=== PATIENT | female | born 1970 ===

== ENCOUNTER 2016-09-08 08:59 | Emergency (ER) | payer OTHER ==
[2016-09-08 08:59] VITALS: BMI 25.7
[2016-09-08 09:10] VITALS: O2SAT 98
--- NOTE | 2016-09-08 09:57 | ED PDOC ---
HPI: Female Pain Time Seen by Provider: 09/08/16 09:30 Chief Complaint (Nursing): Lower Extremity Problem/Injury Chief Complaint (Provider): dysuria History Per: Patient History/Exam Limitations: no limitations Onset/Duration Of Symptoms: Days (x 4) Additional Complaint(s): Marie Mcfarland is a 45 year old female, with a questionable previous medical history of liver disease, who presents to the ED with complaints of dysuria associated with frequency and lower back pain radiating to her bilateral legs ongoing for 4 days. Patient denies fever, abdominal pain or vomiting. She was recently treaded for vaginal candidiasis. PMD: none provided Abnormal Vaginal Bleeding: No Past Medical History Reviewed: Historical Data, Nursing Documentation, Vital Signs Vital Signs: Last Vital Signs Temp 97 F L 09/08/16 09:03 Pulse 66 09/08/16 09:03 Resp BP 124/80 09/08/16 09:03 Pulse Ox 98 09/08/16 09:08 - Medical History PMH: Anxiety, Depression, Gastritis, Hepatitis (recently diagnosed) Denies: Chronic Kidney Disease - Surgical History Surgical History: No Surg Hx - Family History Family History: States: Unknown Family Hx - Immunization History Hx Tetanus Toxoid Vaccination: Yes (3 years ago) - Home Medications Home Medications: Ambulatory Orders Medication Instructions Recorded Clonazepam [Klonopin] 2 mg PO QID PRN 12/11/15 Pantoprazole [Protonix EC Tab] 40 mg PO DAILY 12/11/15 Cephalexin [cephalexin] 500 mg PO TID 04/25/16 Ibuprofen [Motrin Tab] 1 mg PO Q12 PRN 04/25/16 oxyCODONE/Acetaminophen [Percocet 1 mg PO Q4 PRN 04/25/16 5/325 mg Tab] Cyclobenzaprine [Cyclobenzaprine 10 mg PO TID #10 tab 09/08/16 HCl] Fluticasone Nasal [Flonase] 1 spr NS DAILY #1 spr 09/08/16 Naproxen [Naprosyn] 500 mg PO Q12H #20 tab 09/08/16 Sulfamethoxazole/Trimethoprim 1 tab PO BID #20 tab 09/08/16 [Bactrim DS 800 mg-160 mg] - Allergies Allergies/Adverse Reactions: Allergies Allergy/AdvReac Type Severity Reaction Status Date / Time No Known Allergies Allergy Verified 09/08/16 09:08 Review of Systems ROS Statement: Except As Marked, All Systems Reviewed And Found Negative Constitutional: Negative for: Fever Gastrointestinal: Negative for: Vomiting, Abdominal Pain Genitourinary Female: Positive for: Dysuria, Frequency. Negative for: Vaginal Discharge, Vaginal Bleeding Musculoskeletal: Positive for: Back Pain Physical Exam - Reviewed Nursing Documentation Reviewed: Yes Vital Signs Reviewed: Yes - Physical Exam Appears: Positive for: Well, Non-toxic, No Acute Distress Head Exam: Positive for: ATRAUMATIC, NORMAL INSPECTION, NORMOCEPHALIC Cardiovascular/Chest: Positive for: Regular Rate, Rhythm Respiratory: Positive for: CNT, Normal Breath Sounds Gastrointestinal/Abdominal: Positive for: Normal Exam, Bowel Sounds, Soft. Negative for: Tenderness Back: Positive for: Muscle Spasm (bilateral paralumbar spasm with tenderness). Negative for: L CVA Tenderness, R CVA Tenderness, Vertebral Tenderness Extremity: Positive for: Normal ROM Neurologic/Psych: Positive for: Alert, Oriented. Negative for: Motor/Sensory Deficits - ECG O2 Sat by Pulse Oximetry: 98 (RA) Pulse Ox Interpretation: Normal Medical Decision Making Medical Decision Making: Initial Plan: * urine culture * urine dipstick * urine * reevaluation Scribe Attestation: Documented by Beatris Baptiste, acting as a scribe for Sebastian Yang MD. Provider Scribe Attestation: All medical record entries made by the Scribe were at my direction and personally dictated by me. I have reviewed the chart and agree that the record accurately reflects my personal performance of the history, physical exam, medical decision making, and the department course for this patient. I have also personally directed, reviewed, and agree with the discharge instructions and disposition. Disposition - Clinical Impression Clinical Impression: UTI (lower urinary tract infection), Chronic back pain - Patient ED Disposition Is Patient to be Admitted: No Counseled Patient/Family Regarding: Diagnosis, Need For Followup, Rx Given - Disposition Referrals: [facility] [Outside] Disposition: Routine/Home Disposition Time: 10:38 Condition: FAIR Prescriptions: Cyclobenzaprine [Cyclobenzaprine HCl] 10 mg PO TID #10 tab Fluticasone Nasal [Flonase] 1 spr NS DAILY #1 spr Naproxen [Naprosyn] 500 mg PO Q12H #20 tab Sulfamethoxazole/Trimethoprim [Bactrim DS 800 mg-160 mg] 1 tab PO BID #20 tab Instructions: Urinary Tract Infection in Women (ED), Lumbar Radiculopathy (ED)
[2016-09-08 11:19] VITALS: BP 128/76; PULSE 78; RESP 20; TEMP 97.6
== END 2016-09-08 11:19 | disposition home or self-care (01) ==
LOC: H.ER 08:59
DX: N39.0 Urinary tract infection, site not specified (principal); M54.9 Dorsalgia, unspecified

== ENCOUNTER 2016-09-15 10:38 | Emergency (ER) | payer MEDICAID, OTHER ==
[2016-09-15 10:39] VITALS: BMI 25.7
[2016-09-15 11:04] VITALS: O2SAT 98
[2016-09-15] MEDS ORDERED: Oxycodone/Acetaminophen 5/325 mg Tab PO STA (11:11)
--- NOTE | 2016-09-15 11:19 | ED PDOC ---
HPI: Back Time Seen by Provider: 09/15/16 11:17 Chief Complaint (Nursing): Back Pain Chief Complaint (Provider): left sided flank pain History Per: Patient (45 y/o female tripped and fell along furniture at home yesteday. Notes moderate pain along left chest wall. Patient uses cane s/p bunionectomy. States she fell along wooden edge of furniture.) Past Medical History Reviewed: Historical Data, Nursing Documentation, Vital Signs Vital Signs: Last Vital Signs Temp Pulse Resp BP Pulse Ox 98 09/15/16 11:02 - Medical History PMH: Anxiety, Depression, Gastritis, Hepatitis (recently diagnosed) Denies: Chronic Kidney Disease - Family History Family History: States: Unknown Family Hx - Immunization History Hx Tetanus Toxoid Vaccination: Yes (3 years ago) - Home Medications Home Medications: Ambulatory Orders Medication Instructions Recorded Clonazepam [Klonopin] 2 mg PO QID PRN 12/11/15 Pantoprazole [Protonix EC Tab] 40 mg PO DAILY 12/11/15 Cephalexin [cephalexin] 500 mg PO TID 04/25/16 Ibuprofen [Motrin Tab] 1 mg PO Q12 PRN 04/25/16 oxyCODONE/Acetaminophen [Percocet 1 mg PO Q4 PRN 04/25/16 5/325 mg Tab] Cyclobenzaprine [Cyclobenzaprine 10 mg PO TID #10 tab 09/08/16 HCl] Fluconazole [Diflucan] 100 mg PO DAILY #1 tab 09/08/16 Fluticasone Nasal [Flonase] 1 spr NS DAILY #1 spr 09/08/16 Sulfamethoxazole/Trimethoprim 1 tab PO BID #20 tab 09/08/16 [Bactrim DS 800 mg-160 mg] Naproxen [Naprosyn Tab] 375 mg PO Q8 PRN #21 tab 09/15/16 oxyCODONE/Acetaminophen [Percocet 1 ea PO Q6 PRN #10 tab 09/15/16 5/325 mg Tab] - Allergies Allergies/Adverse Reactions: Allergies Allergy/AdvReac Type Severity Reaction Status Date / Time No Known Allergies Allergy Verified 09/15/16 11:01 Review of Systems ROS Statement: Except As Marked, All Systems Reviewed And Found Negative Physical Exam - Reviewed Nursing Documentation Reviewed: Yes Vital Signs Reviewed: Yes - Physical Exam Appears: Positive for: Well, Non-toxic, No Acute Distress Head Exam: Positive for: ATRAUMATIC, NORMAL INSPECTION, NORMOCEPHALIC Skin: Positive for: Normal Color, Warm, DRY Eye Exam: Positive for: EOMI, Normal appearance, PERRL ENT: Positive for: Normal ENT Inspection Neck: Positive for: Normal, Painless ROM Cardiovascular/Chest: Positive for: Regular Rate, Rhythm. Negative for: Chest Non Tender (left sided chest wall tender/ecchymosis noted.) Respiratory: Positive for: CNT, Normal Breath Sounds Gastrointestinal/Abdominal: Positive for: Normal Exam, Bowel Sounds, Soft Back: Positive for: Normal Inspection Extremity: Positive for: Normal ROM Neurologic/Psych: Positive for: Alert, Oriented - ECG O2 Sat by Pulse Oximetry: 98 - Progress ED Course And Treament: Percocet 5/325 mg x 1 dose Disposition - Clinical Impression Clinical Impression: Rib injury - Disposition Disposition: Routine/Home Disposition Time: 12:19 Condition: FAIR Prescriptions: Naproxen [Naprosyn Tab] 375 mg PO Q8 PRN #21 tab PRN Reason: Pain, Moderate (4-7) oxyCODONE/Acetaminophen [Percocet 5/325 mg Tab] 1 ea PO Q6 PRN #10 tab PRN Reason: Pain, Severe (8-10) Instructions: Rib Fracture (ED) Forms: [employer] (Yakut)
[2016-09-15] MEDS ORDERED: Oxycodone/Acetaminophen 5/325 mg Tab ONE (11:28)
[2016-09-15 12:21] VITALS: BP 117/78; PULSE 93; RESP 16; TEMP 98
--- NOTE | 2016-09-15 13:10 | RAD ---
PROCEDURE: Radiographs of the Chest and Left Ribs. HISTORY: rib fx COMPARISON: Chest x-ray performed 04/21/16. TECHNIQUE: Frontal radiograph of the chest and multiple oblique radiographs of the left ribs were obtained. FINDINGS: LEFT RIBS: No appreciable displaced rib fracture. LUNGS: No focal consolidation. Please note that chest x-ray has limited sensitivity for the detection of pulmonary masses. PLEURA: No significant pleural effusion. No definite pneumothorax. CARDIOVASCULAR: Heart size appears within normal limits. OTHER FINDINGS: None. IMPRESSION: Unremarkable radiographs of the chest and left ribs. No appreciable displaced left rib fracture.
== END 2016-09-15 14:30 | disposition home or self-care (01) ==
LOC: H.ER 10:38
DX: S29.9XXA Unspecified injury of thorax, initial encounter (principal); W01.190A Fall on same level from slipping, tripping and stumbling with subsequent striking against furniture, initial encounter; Y93.9 Activity, unspecified; Y92.009 Unspecified place in unspecified non-institutional (private) residence as the place of occurrence of the external cause

== ENCOUNTER 2016-10-28 07:40 | Emergency (ER) | payer OTHER ==
[2016-10-28 07:50] VITALS: BMI 26.1
[2016-10-28 07:51] VITALS: O2SAT 98
--- NOTE | 2016-10-28 09:05 | ED PDOC ---
HPI: CCC, URI, Sore Throat Time Seen by Provider: 10/28/16 07:54 Chief Complaint (Nursing): Chest Pain Chief Complaint (Provider): cough, cold, congestion History Per: Patient History/Exam Limitations: no limitations Onset/Duration Of Symptoms: Days (x 3) Additional Complaint(s): Marie Mcfarland is a 45 year old female, with a previous medical history of depression, arthritis and tremors, who presents to the ED with complaints of a cough associated with chest pain on deep inspiration, sore throat, headache and left calf tenderness ongoing for 3 days. Patient denies any shortness of breath , fever, chills or recent travel. Patient reports taking gas-x which provided no relief. PMD: Kurt Auguste MD Past Medical History Reviewed: Historical Data, Nursing Documentation, Vital Signs Vital Signs: Last Vital Signs Temp 97.6 F 10/28/16 14:42 Pulse 78 10/28/16 14:42 Resp 19 10/28/16 14:42 BP 128/78 10/28/16 14:42 Pulse Ox 98 10/28/16 14:42 - Medical History PMH: Anxiety, Depression, Gastritis, Hepatitis (recently diagnosed) Denies: Chronic Kidney Disease - Family History Family History: States: Unknown Family Hx - Immunization History Hx Tetanus Toxoid Vaccination: Yes (3 years ago) - Home Medications Home Medications: Ambulatory Orders Medication Instructions Recorded Clonazepam [Klonopin] 2 mg PO QID PRN 12/11/15 Pantoprazole [Protonix EC Tab] 40 mg PO DAILY 12/11/15 Cephalexin [cephalexin] 500 mg PO TID 04/25/16 Ibuprofen [Motrin Tab] 1 mg PO Q12 PRN 04/25/16 oxyCODONE/Acetaminophen [Percocet 1 mg PO Q4 PRN 04/25/16 5/325 mg Tab] Cyclobenzaprine [Cyclobenzaprine 10 mg PO TID #10 tab 09/08/16 HCl] Fluconazole [Diflucan] 100 mg PO DAILY #1 tab 09/08/16 Fluticasone Nasal [Flonase] 1 spr NS DAILY #1 spr 09/08/16 Sulfamethoxazole/Trimethoprim 1 tab PO BID #20 tab 09/08/16 [Bactrim DS 800 mg-160 mg] Naproxen [Naprosyn Tab] 375 mg PO Q8 PRN #21 tab 09/15/16 oxyCODONE/Acetaminophen [Percocet 1 ea PO Q6 PRN #10 tab 09/15/16 5/325 mg Tab] Naproxen [Naprosyn] 500 mg PO BID PRN #15 tablet 10/28/16 - Allergies Allergies/Adverse Reactions: Allergies Allergy/AdvReac Type Severity Reaction Status Date / Time tramadol AdvReac DIZZINESS Verified 10/28/16 08:18 Review of Systems ROS Statement: Except As Marked, All Systems Reviewed And Found Negative Constitutional: Negative for: Fever, Chills Cardiovascular: Positive for: Chest Pain. Negative for: Palpitations Respiratory: Positive for: Cough. Negative for: Shortness of Breath Musculoskeletal: Positive for: Other (left calf pain ) Physical Exam - Reviewed Nursing Documentation Reviewed: Yes Vital Signs Reviewed: Yes - Physical Exam Appears: Positive for: Well, Non-toxic, No Acute Distress Head Exam: Positive for: ATRAUMATIC, NORMAL INSPECTION, NORMOCEPHALIC Skin: Positive for: Normal Color, Warm, Dry Eye Exam: Positive for: EOMI, Normal appearance, PERRL ENT: Positive for: Normal ENT Inspection Neck: Positive for: Normal, Painless ROM Cardiovascular/Chest: Positive for: Bradycardia. Negative for: Chest Non Tender (TTP bilateral anterior chest wall) Respiratory: Positive for: CNT, Normal Breath Sounds Gastrointestinal/Abdominal: Positive for: Normal Exam, Bowel Sounds, Soft. Negative for: Tenderness Back: Positive for: Normal Inspection Extremity: Positive for: Normal ROM, Calf Tenderness (left ) Neurologic/Psych: Positive for: Alert, Oriented - Laboratory Results Result Diagrams: 10/28/16 09:19 10/28/16 09:19 - ECG O2 Sat by Pulse Oximetry: 98 (RA) Pulse Ox Interpretation: Normal Medical Decision Making Medical Decision Making: Initial Impression: atypical chest pain Initial Plan: * labs * Troponin I * PTT * PT * urine * urine dipstick * urinalysis * US duplex lower extremity * D-dimer * CXR * reevaluation 11:19 CXR FINDINGS: LUNGS: No active pulmonary disease. PLEURA: No significant pleural effusion identified. No pneumothorax apparent. CARDIOVASCULAR: Normal. OSSEOUS STRUCTURES: No significant abnormalities. VISUALIZED UPPER ABDOMEN: Normal. OTHER FINDINGS: None. IMPRESSION: No active disease. No significant interval change compared to the prior examination(s). Accession No. : [id number] Patient Name / ID : YECENIA RADFORD / [id number] Exam Date : 10/28/2016 12:44:16 ( Approved ) Study Comment : Sex / Age : F / 45Y Creator : Yoni Boucher MD Dictator : Yoni Boucher MD Batch Freezer : [employer] Middleware Developer : Yoni Boucher MD Approver2 : Report Date : 10/28/2016 13:50:54 My Comment : PROCEDURE: CT Chest with contrast (Pulmonary Angiogram) HISTORY: CP COMPARISON: None available. TECHNIQUE: Axial computed tomography images were obtained of the chest in the pulmonary arterial phase of enhancement. Coronal and sagittal reformatted images were created and reviewed. Maximum intensity projection (MIP) reconstructed images in the following planes : Axial projection only Intravenous contrast dose: 95 cc Visipaque 320. Mean Hounsfield unit values in the main pulmonary artery: 318.27 Radiation dose: Total exam DLP = 462.50 mGy-cm. This CT exam was performed using one or more of the following dose reduction techniques: Automated exposure control, adjustment of the mA and/or kV according to patient size, and/or use of iterative reconstruction technique. FINDINGS: PULMONARY ARTERIES: Unremarkable. No pulmonary embolism. AORTA: No acute findings. No thoracic aortic aneurysm. LUNGS: Unremarkable. No nodule, mass or pulmonary consolidation. PLEURAL SPACES: Unremarkable. No effusion or pneuomothorax. HEART: Unremarkable. No cardiomegaly. No significant pericardial effusion. LYMPH NODES: No lymphadenopathy. BONES, CHEST WALL: Unremarkable. No fracture or destructive lesion OTHER FINDINGS: Unremarkable. IMPRESSION: Unremarkable CT pulmonary angiogram. No pulmonary embolus. Accession No. : [id number] Patient Name / ID : YECENIA RADFORD / [id number] Exam Date : 10/28/2016 11:53:49 ( Approved ) Study Comment : Sex / Age : F / 45Y Creator : Yoni Boucher MD Dictator : Yoni Bocuher MD Batch Freezer : [employer] Middleware Developer : Yoni Boucher MD Approver2 : Report Date : 10/28/2016 14:17:37 My Comment : PROCEDURE: Bilateral lower extremity venous duplex Doppler. HISTORY: LLE swelling COMPARISON: None available. TECHNIQUE: Bilateral common femoral, superficial femoral, popliteal and posterior tibial veins were evaluated. Flow was assessed with color Doppler, compressibility, assessment of phasic flow and augmentation response. FINDINGS: COMMON FEMORAL VEIN: Right CFV: Unremarkable. Left CFV: Unremarkable. SUPERFICIAL FEMORAL VEIN: Right SFV: Unremarkable. Left SFV: Unremarkable. POPLITEAL VEIN: Right Popliteal: Unremarkable. Left Popliteal: Unremarkable. POSTERIOR TIBIAL VEIN: Right PTV: Unremarkable. Left PTV: Unremarkable. OTHER FINDINGS: None. IMPRESSION: No evidence of deep venous thrombosis. Scribe Attestation: Documented by Beatris Baptiste, acting as a scribe for Beatris Gallo MD. Provider Scribe Attestation: All medical record entries made by the Scribe were at my direction and personally dictated by me. I have reviewed the chart and agree that the record accurately reflects my personal performance of the history, physical exam, medical decision making, and the department course for this patient. I have also personally directed, reviewed, and agree with the discharge instructions and disposition. Disposition - Clinical Impression Clinical Impression: Chest wall pain - Disposition Referrals: [facility] [Outside] Disposition: Routine/Home Disposition Time: 13:58 Condition: STABLE Prescriptions: Naproxen [Naprosyn] 500 mg PO BID PRN #15 tablet PRN Reason: Pain, Moderate (4-7) Instructions: Chest Wall Pain (ED) Forms: [employer] ([place]izen [place])
[2016-10-28 09:25] LABS: BASO # 0.1 K/uL (0.0-0.2); BASO % 1.2 % (0.0-2.0); EOS # 0.2 K/uL (0.0-0.7); EOS % 4.6 % (0.0-4.0); HEMATOCRIT 34.8 % (34.0-47.0); LYMPH # 1.6 K/uL (1.0-4.3); LYMPH % 32.3 % (20.0-40.0); MEAN CELL VOLUME 92.1 fl (81.0-99.0); MEAN CORPUSCULAR HEMOGLOBIN 31.2 pg (27.0-31.0); MEAN CORPUSCULAR HGB CONC 33.8 g/dL (33.0-37.0); MEAN PLATELET VOLUME 9.3 fl (7.2-11.7); MONO # 0.5 K/uL (0.0-0.8); MONO % 9.6 % (0.0-10.0); NEUT # 2.7 K/uL (1.8-7.0); NEUT % 52.3 % (50.0-75.0); RED CELL DISTRIBUTION WIDTH 13.9 % (11.5-14.5); WHITE BLOOD COUNT 5.1 K/uL (4.8-10.8)
[2016-10-28 09:41] LABS: ALB/GLOB RATIO 1.1 (1.0-2.1); ALKALINE PHOSPHATASE 379 U/L (38-126); ALT/SGPT 100 U/L (9-52); AST/SGOT 97 U/L (14-36); BILIRUBIN,TOTAL 0.6 mg/dl (0.2-1.3); BLOOD UREA NITROGEN 8 mg/dl (7-17); CALCIUM 9.3 mg/dL (8.4-10.2); CARBON DIOXIDE 23 mmol/L (22-30); CHLORIDE 107 mmol/L (98-107); GFR AFRICAN-AMERICAN > 60; GLUCOSE,RANDOM 93 mg/dL (65-105); POTASSIUM 3.8 MMOL/L (3.6-5.0); SODIUM 139 mmol/l (132-148)
[2016-10-28 09:43] LABS: RBC URINE 3127 /hpf (0-3); URINE BLOOD LARGE (NEGATIVE); URINE COLOR RED (YELLOW); URINE GLUCOSE (UA) NEG (Normal); URINE LEUKOCYTE ESTERASE TRACE Leu/uL (Negative); WBC URINE 45 /hpf (0-5)
[2016-10-28 09:48] LABS: URINE BILIRUBIN SMALL (NEGATIVE); URINE KETONE TRACE mg/dL (NEGATIVE)
[2016-10-28 09:49] LABS: PH,URINE 5.5 (5.0-8.0); URINE PROTEIN >=300 mg/dL (NEGATIVE)
[2016-10-28 09:52] LABS: URINE BACTERIA OCC (<OCC)
[2016-10-28 09:53] LABS: PARTIAL THROMBOPLASTIN TIME 27.2 Seconds (25.6-37.1)
[2016-10-28] MEDS ORDERED: Naproxen 500 MG TAB PO STA (10:11)
[2016-10-28] MEDS ORDERED: Naproxen 500 MG TAB PO ONE (10:11)
--- NOTE | 2016-10-28 11:22 | RAD ---
HISTORY: Midsternal CP COMPARISON: 09/15/2016. TECHNIQUE: Chest PA and lateral FINDINGS: LUNGS: No active pulmonary disease. PLEURA: No significant pleural effusion identified. No pneumothorax apparent. CARDIOVASCULAR: Normal. OSSEOUS STRUCTURES: No significant abnormalities. VISUALIZED UPPER ABDOMEN: Normal. OTHER FINDINGS: None. IMPRESSION: No active disease. No significant interval change compared to the prior examination(s). No preliminary report provided by emergency department personnel.
[2016-10-28] MEDS ORDERED: Sodium Chloride 0.9% 50 ML IV ONE ×2 (12:08→12:38)
[2016-10-28] MEDS ORDERED: Iodixanol 320 MG/ML 100 ML BOTTLE IV ONE ×2 (12:09→12:37)
--- NOTE | 2016-10-28 13:52 | CT ---
PROCEDURE: CT Chest with contrast (Pulmonary Angiogram) HISTORY: CP COMPARISON: None available. TECHNIQUE: Axial computed tomography images were obtained of the chest in the pulmonary arterial phase of enhancement. Coronal and sagittal reformatted images were created and reviewed. Maximum intensity projection (MIP) reconstructed images in the following planes: Axial projection only Intravenous contrast dose: 95 cc Visipaque 320. Mean Hounsfield unit values in the main pulmonary artery: 318.27 Radiation dose: Total exam DLP = 462.50 mGy-cm. This CT exam was performed using one or more of the following dose reduction techniques: Automated exposure control, adjustment of the mA and/or kV according to patient size, and/or use of iterative reconstruction technique. FINDINGS: PULMONARY ARTERIES: Unremarkable. No pulmonary embolism. AORTA: No acute findings. No thoracic aortic aneurysm. LUNGS: Unremarkable. No nodule, mass or pulmonary consolidation. PLEURAL SPACES: Unremarkable. No effusion or pneuomothorax. HEART: Unremarkable. No cardiomegaly. No significant pericardial effusion. LYMPH NODES: No lymphadenopathy. BONES, CHEST WALL: Unremarkable. No fracture or destructive lesion OTHER FINDINGS: Unremarkable. IMPRESSION: Unremarkable CT pulmonary angiogram. No pulmonary embolus.
--- NOTE | 2016-10-28 14:19 | US ---
PROCEDURE: Bilateral lower extremity venous duplex Doppler. HISTORY: LLE swelling COMPARISON: None available. TECHNIQUE: Bilateral common femoral, superficial femoral, popliteal and posterior tibial veins were evaluated. Flow was assessed with color Doppler, compressibility, assessment of phasic flow and augmentation response. FINDINGS: COMMON FEMORAL VEIN: Right CFV: Unremarkable. Left CFV: Unremarkable. SUPERFICIAL FEMORAL VEIN: Right SFV: Unremarkable. Left SFV: Unremarkable. POPLITEAL VEIN: Right Popliteal: Unremarkable. Left Popliteal: Unremarkable. POSTERIOR TIBIAL VEIN: Right PTV: Unremarkable. Left PTV: Unremarkable. OTHER FINDINGS: None. IMPRESSION: No evidence of deep venous thrombosis.
[2016-10-28 14:43] VITALS: BP 128/78; PULSE 78; RESP 19; TEMP 97.6
--- NOTE | 2016-10-29 18:10 | CARD ---
APPROVED REPORT EKG Measurement Heart [id number] <Conclusion> Sinus bradycardia with sinus arrhythmia Otherwise normal ECG
== END 2016-10-28 14:43 | disposition home or self-care (01) ==
LOC: H.ER 07:40
DX: R07.89 Other chest pain (principal); F41.9 Anxiety disorder, unspecified

== ENCOUNTER 2016-12-17 09:37 | Emergency (ER) | payer OTHER ==
[2016-12-17 09:37] VITALS: BMI 26.1
[2016-12-17 10:06] VITALS: RESP 16; TEMP 97; O2SAT 98
--- NOTE | 2016-12-17 11:18 | ED PDOC ---
HPI: General Adult Time Seen by Provider: 12/17/16 10:07 Chief Complaint (Nursing): Finger,Hand,&Wrist History Per: Patient Additional Complaint(s): Pt. states 4 days ago she developed b/l wrist and hand pain causing her to drop a pot. This morning she was holding a teapot and then developed R hand pain. Pt. states she's had b/l hand pain for several years now but has never had wrist pain. Denies numbness, tingling, trauma, fever, rash, swelling. Past Medical History Reviewed: Historical Data, Nursing Documentation, Vital Signs Vital Signs: Last Vital Signs Temp 97 F L 12/17/16 10:02 Pulse 69 12/17/16 10:02 Resp 16 12/17/16 10:02 BP 123/70 12/17/16 10:02 Pulse Ox 98 12/17/16 11:20 - Medical History PMH: Anxiety, Arthritis, Depression, Gastritis, Hepatitis (recently diagnosed) Denies: Chronic Kidney Disease - Family History Family History: States: No Known Family Hx - Immunization History Hx Tetanus Toxoid Vaccination: Yes (3 years ago) - Home Medications Home Medications: Ambulatory Orders Medication Instructions Recorded Clonazepam [Klonopin] 2 mg PO QID PRN 12/11/15 Pantoprazole [Protonix EC Tab] 40 mg PO DAILY 12/11/15 Cephalexin [cephalexin] 500 mg PO TID 04/25/16 Ibuprofen [Motrin Tab] 1 mg PO Q12 PRN 04/25/16 oxyCODONE/Acetaminophen [Percocet 1 mg PO Q4 PRN 04/25/16 5/325 mg Tab] Cyclobenzaprine [Cyclobenzaprine 10 mg PO TID #10 tab 09/08/16 HCl] Fluconazole [Diflucan] 100 mg PO DAILY #1 tab 09/08/16 Fluticasone Nasal [Flonase] 1 spr NS DAILY #1 spr 09/08/16 Sulfamethoxazole/Trimethoprim 1 tab PO BID #20 tab 09/08/16 [Bactrim DS 800 mg-160 mg] Naproxen [Naprosyn Tab] 375 mg PO Q8 PRN #21 tab 09/15/16 oxyCODONE/Acetaminophen [Percocet 1 ea PO Q6 PRN #10 tab 09/15/16 5/325 mg Tab] Naproxen [Naprosyn] 500 mg PO BID PRN #15 tablet 10/28/16 Diclofenac Sodium [Voltaren] 1 appl TP BID PRN #1 12/17/16 - Allergies Allergies/Adverse Reactions: Allergies Allergy/AdvReac Type Severity Reaction Status Date / Time tramadol AdvReac DIZZINESS Verified 12/17/16 10:02 Review of Systems ROS Statement: Except As Marked, All Systems Reviewed And Found Negative Physical Exam - Physical Exam Appears: Positive for: Well, Non-toxic, No Acute Distress Skin: Positive for: Normal Color, Warm. Negative for: Rash Pulses-Radial (L): 2+ Pulses-Radial (R): 2+ Extremity: Positive for: Normal ROM, Other (b/l upper extremities without swelling, tenderness, warmth, erythema) - ECG O2 Sat by Pulse Oximetry: 98 - Progress ED Course And Treament: Toradol 15mg IM ordered. B/L hand x-rays ordered. Disposition - Clinical Impression Clinical Impression: Arthralgia - Patient ED Disposition Is Patient to be Admitted: No - Disposition Referrals: [facility] [Outside] Disposition: Routine/Home Disposition Time: 12:26 Condition: STABLE Prescriptions: Diclofenac Sodium [Voltaren] 1 appl TP BID PRN #1 PRN Reason: pain Instructions: Arthralgia (ED) Forms: [employer] ([place]) Print Language: SLOVENIAN
[2016-12-17 12:40] VITALS: BP 120/70; PULSE 70
--- NOTE | 2016-12-17 14:12 | RAD ---
PROCEDURE: Right Hand Radiographs. HISTORY: pain COMPARISON: None. FINDINGS: BONES: No acute fractures. JOINTS: Mild osteoarthritic changes. SOFT TISSUES: Normal. OTHER FINDINGS: None. IMPRESSION: No acute findings related to/accounting for the clinical presentation. Mild osteoarthritic changes in the expected interphalangeal joint distribution.
--- NOTE | 2016-12-17 14:14 | RAD ---
PROCEDURE: Left Hand Radiographs. HISTORY: Pain. No history of recent/ related trauma provided COMPARISON: December 17, 2016. Right hand reported separately FINDINGS: BONES: No acute fractures. JOINTS: Mild osteoarthritic changes symmetrical compared the contralateral, right hand. SOFT TISSUES: Normal. OTHER FINDINGS: None. IMPRESSION: Mild osteoarthritic change, no acute findings.
== END 2016-12-17 12:40 | disposition home or self-care (01) ==
LOC: H.ER 09:37
DX: M79.643 Pain in unspecified hand (principal)
CPT/HCPCS: 73130; 81025; 96372; 99284; J1885

== ENCOUNTER 2017-01-02 08:00 | Day surgery (SDC) | payer OTHER ==
[2017-01-02 08:24] VITALS: RESP 18
[2017-01-02] MEDS ORDERED: Lactated Ringer's 1,000 ML IV ONE (08:44)
--- NOTE | 2017-01-02 09:37 | CP.SDSHP ---
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 - Previous Medical/Surgical History Pain: 4.Moderate Pain Previous Surgical History: history of R foot surgery - Allergies Allergies: Allergies tramadol Adverse Reaction (Verified 12/17/16 10:02) DIZZINESS - Physical Exam General Appearance: well nourished, in NAD Vital Signs: Vital Signs 01/02/17 01/02/17 08:22 08:25 Temperature 97 F L Pulse Rate 60 60 Respiratory 18 Rate Blood Pressure 117/71 O2 Sat by Pulse 98 Oximetry Mental Status: Alert & Oriented x3 Neuro: WNL - {Optional Preform as Required} Integument: Other (well healed cicatres on dorsum of R 1st MPJ and midfoot) Ortho: Other (pain on palpation dorsum of R midfoot) - Impression Impression: Pt was seen and examined in [facility]. Pt NPO status was confirmed. All Pre-op testing and clearance was in the chart. Pt has exhausted all conservative treatment at this time and is opting for surgical intervention. Pt was explained procedure and post-operative course. All pt's questions were answered to satisfaction. No guarantees were made. Pt understands all risks, benefits and complications of procedure. Pt will follow-up with Dr. Carver in the podiatry clinic - Date & Time Date: 01/02/17 Time: 08:00 Short Stay Discharge - Short Stay Discharge Disposition: HOME/ ROUTINE Referrals: Darron Wodo MD [Primary Care Provider] - Follow-up: with Dr. Carver in [facility] podiatry clinic within 1 week Instructions: Cephalexin (By mouth), Oxycodone/Acetaminophen (By mouth), RICE Therapy (GEN) Additional Instructions (Diet, Activity): Patient in good/stable condition for discharge home. Pt to resume medications per medical reconciliation. Resume regular diet. Please keep dressing clean, dry, & intact to surgical site, use plastic bag over bandage for showering, wear post op shoe at all times when ambulating, call clinic if you see signs of infection (redness, swelling, malodor), please make an appointment to see Dr. Carver in clinic within 1 week for post-op check. Progress Note/Discharge Note with Instructions: - Patient evaluated bedside in recovery s/p surgical procedure. - After surgical procedure patient in NAD - (+) Void, (+) Appetite - Capillary refill time <3s and NVSI intact. - Patient denies complaints at this time - Post operative instructions and plan of care explained to patient at length. - Pt. acknowledges understanding. - Patient stable for DC per podiatric surgery <Chris Sosa - Last Filed: 01/02/17 15:34> Same Day Surgery H & P - Allergies Allergies: Allergies tramadol Adverse Reaction (Verified 12/17/16 10:02) DIZZINESS - Physical Exam Vital Signs: Vital Signs 01/02/17 01/02/17 08:22 08:25 Temperature 97 F L Pulse Rate 60 60 Respiratory 18 Rate Blood Pressure 117/71 O2 Sat by Pulse 98 Oximetry Short Stay Discharge - Short Stay Discharge Admitting Diagnosis/Reason for Visit: S93.326A
[2017-01-02] MEDS ORDERED: Dexamethasone 4 mg/1 ml ONE ×2 (09:38→10:51)
[2017-01-02] MEDS ORDERED: Bupivacaine 0.5% Inj(30mL) ONE (09:38)
[2017-01-02] MEDS ORDERED: Lidocaine 1% Inj (20ml) ONE (09:38)
--- NOTE | 2017-01-02 09:40 | CP.PCM.PN ---
Subjective - Date & Time of Evaluation Date of Evaluation: 01/02/17 Time of Evaluation: 09:37 - Subjective Subjective: Podiatry Progress Note - Dr. Carver 46 year old female unremarkable PMH was seen in [facility] for pre-operative evaluation for right 1st and 2nd metatarsal cuneiform joint fusion + removal of hardware by Dr. Carver today. Patient has been having a lot of pain on her right midfoot for the past 2 years and has exhausted conservative treatment and now opts for surgical intervention. NPO status confirmed. Patient is NAD and AAOx3, denies n/v/f/c/sob/cp. Objective - Vital Signs/Intake and Output Vital Signs (last 24 hours): Temp Pulse Resp BP Pulse Ox 97 F L 60 18 117/71 98 01/02/17 08:22 01/02/17 08:25 01/02/17 08:22 01/02/17 08:22 01/02/17 08:22 - Constitutional Appears: Well, Non-toxic, No Acute Distress - Extremities Exam Additional comments: RLE focused physical exam: vasc: DP/PT pulses palpable 2/4, TG wnl, CFT < 3 sec to all digits, no edema noted neuro: gross sensation intact derm: no open lesions noted, well healed cicatres on dorsum of 1st MPJ and midfoot ortho: pain on palpation dorsum of midfoot - Neurological Exam Neurological Exam: Alert, Awake, Oriented x3 - Psychiatric Exam Psychiatric exam: Normal Affect, Normal Mood Assessment and Plan - Assessment and Plan (Free Text) Assessment: 46 year old female with painful retained hardware and midfoot arthritis, right foot Plan: Pt was seen and examined in [facility] Pt NPO status was confirmed All Pre-op testing and clearance was in the chart Pt has exhausted all conservative treatment at this time and is opting for surgical intervention Pt was explained procedure and post-operative course All pt's questions were answered to satisfaction No guarantees were made Pt understands all risks, benefits and complications of procedure Pt will follow-up with Dr. Carver in the podiatry clinic
[2017-01-02] MEDS ORDERED: ceFAZolin 1 GM in Sodium Chloride 0.9% 100 ML IVPB ONE (09:42)
[2017-01-02] MEDS ORDERED: Bupivacaine 0.5% Inj(30mL) IJ ONE (09:42)
[2017-01-02] MEDS ORDERED: Lidocaine 1% Inj (20ml) IJ ONE (09:42)
[2017-01-02] MEDS ORDERED: Sodium Chloride 0.9% 500 ML IV SCH (09:45)
[2017-01-02] MEDS ORDERED: Propofol 10 mg/ml Inj (20 ML) ONE (10:00)
[2017-01-02] MEDS ORDERED: Rocuronium 10 mg/ml (5 ml) ONE (10:01)
[2017-01-02] MEDS ORDERED: Midazolam 2 MG/2 ML VIAL ONE (10:01)
[2017-01-02] MEDS ORDERED: HYDROmorphone 0.5 mg/0.5 ml ISec IVP PRN ×2 (11:30→12:39)
[2017-01-02] MEDS ORDERED: Lactated Ringer's 500 ML IV ONE (12:14)
[2017-01-02] MEDS ORDERED: Neostigmine Methylsulfate 3mg/3ml Syringe IV ONE (12:22)
[2017-01-02] MEDS ORDERED: Oxycodone/Acetaminophen 5/325 mg Tab PO PRN ×2 (12:40)
--- NOTE | 2017-01-02 12:51 | PCM.SURG1 ---
Surgeon's Initial Post Op Note - Surgeon's Notes Surgeon: Dr. Carver Staff Respiratory Therapist: Dr. Shamar Cobb PGY-3, Dr. Louis Chacon PGY-3, Dr. Andreea Eastman PGY-2 Anesthesia Administered By: Dr. 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 I: 28 cc 0.5% marcaine plain. M: 3-0 vicryl , 4-0 vicryl, 4-0 monocryl. 4.0 cannulated screw 24mm, Lapidus plate, two 3.5 locking screws 24 and 26 mm, two 2.7 locking screws 16 and 24 mm, 1 nitinol staple 15 mm Post-Operative Diagnosis: same Operation Performed: right foot 1st and 2nd met cuneiform joint fusion, right foot hardware removal Specimen/Specimens Removed: suture button R medial cuneiform Estimated Blood Loss: EBL {In ML}: 10 Blood Products Given: N/A Drains Used: No Drains Post-Op Condition: Good Date of Surgery/Procedure: 01/02/17 Time of Surgery/Procedure: 12:54
[2017-01-02 15:40] VITALS: BP 127/87; PULSE 70; TEMP 98.4; O2SAT 96
--- NOTE | 2017-01-02 20:02 | RAD ---
PROCEDURE: Right Foot Radiographs. HISTORY: s/p right foot surgery COMPARISON: 08/11/2016 FINDINGS: BONES: Expected postoperative findings medial aspect of the foot. Postoperative status. New orthopedic hardware identified traversing the 1st cuneiform, 1st metatarsal and anchored to the 2nd cuneiform. No evidence of orthopedic hardware failure. . JOINTS: Normal. SOFT TISSUES: Normal. OTHER FINDINGS: None. IMPRESSION: Satisfactory postoperative status Limitations of the current study: Detail obscured by overlying fiberglass cast.
--- NOTE | 2017-01-05 19:40 | PCM.OP ---
Operative Report - Operative Report Date of Surgery/Procedure: 01/02/17 Time of Surgery/Procedure: 10:40 Surgeon: Dr. Carver Roof Bolter: Shamar Cobb PGY-3, Louis Chacon PGY-3, Andreea Eastman PGY-2 Anesthesia/Sedation: General LMA and local Pre-Operative Diagnosis: #1. Painful right foot hardware. #2. Right foot midfoot arthritis (1st and 2nd Tarsometatarsal joints) Post-Operative Diagnosis: #1. Painful right foot hardware. #2. Right foot midfoot arthritis (1st and 2nd Tarsometatarsal joints) Indication for Surgery: The patient is a 46 year-old F with the above diagnoses. Patient injured her right foot 2 years ago and had a surgical intervention for Lisfrace ligament tear however pain has not relived after the surgery. Patient requests a surgical intervention for pain of right foot. The patient signed the consent after careful explanation of risks, benefits, complication and alternatives for surgical procedure. No guarantees were given nor implied. 2 grams of Ancef IV were given to the pt hour prior to the procedure. NPO status was confirmed prior to taking pt to the OR. Operative Findings: Preparation: The patient was brought to the operating room and placed on the operating room table in supine position. A well-padded pneumatic thigh tourniquet was placed to the patient's Thigh. Once general anesthesia was achieved, the right lower extremity was then prepped and draped in usual sterile manner. Esmarch was utilized to exsanguinate the patient's right lower extremity. Pneumatic Thigh tourniquet was then inflated to 350 mmHg and procedure began. Procedure/Operation Description: #1. Right foot removal of painful hardware. Attention was directed to the medial aspect of the 1st ray right foot where an approximately 7 cm linear longitudinal incision was made medial and parallel to the tendon of the extensor hallucis. The incision was deepened through the subcutaneous tissues using sharp and blunt dissection. Care was taken to identify and retract all vital neurovascular structures. All bleeders were cauterized and ligated as necessary. Next, small button of the Arhtrex mini- tight rope was found on the medial aspect of the medial cuneiform. Utilizing # 15 and forceps, the button was removed and moved form the operative field. Next , irrigation was performed with copious amount of the normal sterile saline. # 2. Right foot 1st and 2nd tarsometatarsal joints arthrodesis. Attention was re- directed to the 1st metatarsal-cuneiform joint. Utilizing #15 blade, cartilage of the base of the 1st metatarsal and distal aspect of the medial cuneiform was removed. Next, a 0.062 k wire was driven from the medial base of the 1st metatarsal to lateral aspect of the medial cuneiform. The compression and good alignment was confirmed under the intra-operative fluoroscopy. Next, [facility] Lap[facility]us plate was applied over the 1st metatarsal and medial cuneiform joint and was fixated with 3.5 x 26 mm locking screw, 3.5 x 24 mm locking screw, 2.7 x 24 mm locking screw and 2.7 x 16 mm locking screw. And a 4.0 x 24mm cannulated screw was inserted as a lag screw over the k wire which was fixated medial base of the 1st metatarsal to lateral aspect of the medial cuneiform. The plate compression and screw location were confirmed under the intra-operative fluoroscopy. The surgical site was irrigated with copious amount of normal sterile saline. Deep tissue was reapproximated with #3-0 Vicryl and subcutaneous tissues were reapproximated with #4-0 Vicryl and skin was reapproximated with #4-0 Monocryl as a running suture technique. Next, attention was re-directed to the dorsal aspect of the 2nd metatarsal- intermediate cuneiform. The incision was deepened through the subcutaneous tissues using sharp and blunt dissection. Care was taken to identify and retract all vital neurovascular structures. All bleeders were cauterized and ligated as necessary. Utilizing saw blade, cartilage of the 2nd tarsometatarsal joint was removed. Next, Synthes BME size #15 staple was inserted and fused the 2nd metatarsal base and intermediated cuneiform. The compression and location of the staple were confirmed under the intra-operative fluoroscopy. The surgical site was irrigated with copious amount of normal sterile saline. Deep tissues were reapproximate and coapted with #3-0 Vicryl, Subcutaneous tissues were reapproximated with #4-0 Vicryl, and skin was reapproximated with #4-0 Monocryl as a running suture technique. Right foot was infiltrated with 20ml of 0.5% Mcarcaine plain as a local block fashion. Right foot was dressed with saline soaked 4x4, DSD and applied bivalve below knee cast. Estimated Blood Loss: 10cc Complications: None Discharge & Condition: The patient tolerated the anesthesia and procedure well and was escorted to the recovery room with vital signs stable and neurovascular status intact to the Right foot. This patient will follow up with at [facility] podiatry clinic
== END 2017-01-02 15:45 | disposition home or self-care (01) ==
LOC: H.OPSURG 08:00
PROVIDERS: ATTEND Podiatrist
DX: M13.871 Other specified arthritis, right ankle and foot (principal); T84.84XA Pain due to internal orthopedic prosthetic devices, implants and grafts, initial encounter; Y83.8 Other surgical procedures as the cause of abnormal reaction of the patient, or of later complication, without mention of misadventure at the time of the procedure
CPT/HCPCS: 20680; 28740; 73630; 97161; C1713; C1769; G8978; G8979; G8980; J0690; J1100; J1170; J1885; J2001; J2250; J2405; J2704; J2710; J3010; J7030; J7120

== ENCOUNTER 2017-02-25 13:33 | Emergency (ER) | payer OTHER ==
[2017-02-25 13:34] VITALS: BMI 26.1
[2017-02-25 14:04] VITALS: BP 156/82; PULSE 54; RESP 18; TEMP 96.3; O2SAT 98
[2017-02-25] MEDS ORDERED: Oxycodone/Acetaminophen 5/325 mg Tab PO STA (16:19)
--- NOTE | 2017-02-25 16:55 | RAD ---
PROCEDURE: Radiographs of the Lumbar Spine. HISTORY: L low back pain COMPARISON: None FINDINGS: BONES: Alignment appears satisfactory. No listhesis. No acute displaced fracture identified. Multilevel degenerative changes including osteophyte formation. Facet hypertrophy. DISC SPACES: Unremarkable. OTHER FINDINGS: None. IMPRESSION: No acute displaced fracture or subluxation identified. Degenerative changes.
--- NOTE | 2017-02-25 17:17 | ED PDOC ---
HPI: Back Time Seen by Provider: 02/25/17 14:18 Chief Complaint (Nursing): Back Pain Chief Complaint (Provider): Back pain History Per: Patient History/Exam Limitations: no limitations Onset/Duration Of Symptoms: Days (3) Additional Complaint(s): Patient is a 46 y/o female with no significant past medical history presenting to the emergency department for back pain following a fall three days ago. Reports that she tripped and fell, denying any head injury or loss of consciousness. Also reports right foot pain, noting that she had a cast on her right foot removed by Dr. Carver today. Denies taking any pain medications and denies any other complaints. PCP: Dr. Kurt Auguste Past Medical History Reviewed: Historical Data, Nursing Documentation, Vital Signs Vital Signs: Last Vital Signs Temp 96.3 F L 02/25/17 14:01 Pulse 54 L 02/25/17 14:01 Resp 18 02/25/17 14:01 BP 156/82 H 02/25/17 14:01 Pulse Ox 98 02/25/17 14:01 - Medical History PMH: Anxiety, Arthritis, Depression, Gastritis, Hepatitis (recently diagnosed) Denies: Chronic Kidney Disease - Family History Family History: States: Unknown Family Hx - Immunization History Hx Tetanus Toxoid Vaccination: Yes (3 years ago) - Home Medications Home Medications: Ambulatory Orders Medication Instructions Recorded Clonazepam [Klonopin] 2 mg PO QID PRN 12/11/15 Pantoprazole [Protonix EC Tab] 40 mg PO DAILY 12/11/15 Cephalexin [Keflex] 500 mg PO TID 04/25/16 Ibuprofen [Motrin Tab] 1 mg PO Q12 PRN 04/25/16 Cyclobenzaprine [Flexeril] 10 mg PO TID #10 tab 09/08/16 Fluconazole [Diflucan] 100 mg PO DAILY #1 tab 09/08/16 Fluticasone Nasal [Flonase] 1 spr NS DAILY #1 spr 09/08/16 Sulfamethoxazole/Trimethoprim 1 tab PO BID #20 tab 09/08/16 [Bactrim DS Tab] Naproxen [Naprosyn Tab] 375 mg PO Q8 PRN #21 tab 09/15/16 Naproxen [Naprosyn] 500 mg PO BID PRN #15 tablet 10/28/16 Diclofenac Sodium [Voltaren] 1 appl TP BID PRN #1 12/17/16 Cephalexin [Keflex] 500 mg PO TID 01/02/17 oxyCODONE/Acetaminophen [Percocet 1 ea PO Q4 PRN 01/02/17 5/325 mg Tab] oxyCODONE/Acetaminophen [Percocet 1 tab PO Q6H PRN #5 tab 02/25/17 5/325 mg Tab] - Allergies Allergies/Adverse Reactions: Allergies Allergy/AdvReac Type Severity Reaction Status Date / Time tramadol AdvReac DIZZINESS Verified 12/17/16 10:02 Review of Systems ROS Statement: Except As Marked, All Systems Reviewed And Found Negative Musculoskeletal: Positive for: Back Pain (left sided), Foot Pain (right) Physical Exam - Reviewed Nursing Documentation Reviewed: Yes Vital Signs Reviewed: Yes - Physical Exam Appears: Positive for: Well, Non-toxic, No Acute Distress Head Exam: Positive for: ATRAUMATIC, NORMAL INSPECTION, NORMOCEPHALIC Skin: Positive for: Normal Color, Warm, Dry Eye Exam: Positive for: Normal appearance Neck: Positive for: Normal Cardiovascular/Chest: Positive for: Regular Rate, Rhythm. Negative for: Murmur Respiratory: Positive for: Normal Breath Sounds. Negative for: Accessory Muscle Use, Respiratory Distress Gastrointestinal/Abdominal: Positive for: Normal Exam, Soft. Negative for: Tenderness Back: Positive for: Other (Left lower back pain with no ecchymosis or deformities) Extremity: Positive for: Normal ROM (hips). Negative for: Pedal Edema Neurologic/Psych: Positive for: Alert, Oriented (x3) - ECG O2 Sat by Pulse Oximetry: 98 (RA) Pulse Ox Interpretation: Normal Medical Decision Making Medical Decision Making: Time: 16:19 Initial impression: Back pain status post fall Initial plan: ED Urine Dipstick ED Urine Oxycodone/Acetaminophen 1 tab PO Reevaluation 16:54 L-Spine x-ray reviewed. Findings noted as follows: FINDINGS: BONES: Alignment appears satisfactory. No listhesis. No acute displaced fracture identified. Multilevel degenerative changes including osteophyte formation. Facet hypertrophy. DISC SPACES: Unremarkable. OTHER FINDINGS: None. IMPRESSION: No acute displaced fracture or subluxation identified. Degenerative changes. Scribe Attestation: Documented by Flaquita Parker, acting as a scribe for Beatris Gallo MD. Provider Scribe Attestation: All medical record entries made by the Scribe were at my direction and personally dictated by me. I have reviewed the chart and agree that the record accurately reflects my personal performance of the history, physical exam, medical decision making, and the department course for this patient. I have also personally directed, reviewed, and agree with the discharge instructions and disposition. Disposition - Clinical Impression Clinical Impression: Back injury - Disposition Disposition: Routine/Home Disposition Time: 17:35 Condition: STABLE Additional Instructions: FOLLOW-UP WITH PMD WITHIN 2 DAYS FOR REEVALUATION. Prescriptions: oxyCODONE/Acetaminophen [Percocet 5/325 mg Tab] 1 tab PO Q6H PRN #5 tab PRN Reason: Pain, Severe (8-10) Instructions: Back Pain (ED) Forms: [employer] (Paraguayan)
== END 2017-02-25 18:06 | disposition home or self-care (01) ==
LOC: H.ER 13:33
DX: S39.92XA Unspecified injury of lower back, initial encounter (principal); W01.0XXA Fall on same level from slipping, tripping and stumbling without subsequent striking against object, initial encounter; Y92.89 Other specified places as the place of occurrence of the external cause; F32.9 Major depressive disorder, single episode, unspecified; F41.9 Anxiety disorder, unspecified; M47.816 Spondylosis without myelopathy or radiculopathy, lumbar region

== ENCOUNTER 2017-04-20 08:36 | Emergency (ER) | payer OTHER ==
[2017-04-20 08:44] VITALS: BMI 26.9
[2017-04-20] MEDS ORDERED: Sodium Chloride 0.9% 1,000 ML IV STA (09:56)
--- NOTE | 2017-04-20 10:30 | ED PDOC ---
HPI: CCC, URI, Sore Throat Time Seen by Provider: 04/20/17 09:23 Chief Complaint (Nursing): Flu-like Symptoms Chief Complaint (Provider): Flu-like Symptoms History Per: Patient History/Exam Limitations: no limitations Onset/Duration Of Symptoms: Days (x4) Current Symptoms Are (Timing): Still Present Additional Complaint(s): 46 year old female presents to the Emergency Department complaining of cough, sore throat, ear pain, headache, and body aches since Thursday04/17/17. Also notes urinary frequency and dysuria, but no hematuria. Denies any fever or chills. PMD: [facility] Past Medical History Reviewed: Historical Data, Nursing Documentation, Vital Signs Vital Signs: Last Vital Signs Temp 98.6 F 04/20/17 14:30 Pulse 52 L 04/20/17 14:30 Resp 18 04/20/17 14:30 BP 128/68 04/20/17 14:30 Pulse Ox 100 04/20/17 14:30 - Medical History PMH: Anxiety, Arthritis, Depression, Gastritis, Hepatitis (recently diagnosed) Denies: Chronic Kidney Disease - Surgical History Other surgeries: Right foot surgery - Family History Family History: States: Unknown Family Hx - Social History Current smoker - smoking cessation education provided: Yes Alcohol: Social Drugs: Denies - Immunization History Hx Tetanus Toxoid Vaccination: Yes (3 years ago) - Home Medications Home Medications: Ambulatory Orders Medication Instructions Recorded Clonazepam [Klonopin] 2 mg PO QID PRN 12/11/15 Pantoprazole [Protonix EC Tab] 40 mg PO DAILY 12/11/15 Cephalexin [Keflex] 500 mg PO TID 04/25/16 Ibuprofen [Motrin Tab] 1 mg PO Q12 PRN 04/25/16 Cyclobenzaprine [Flexeril] 10 mg PO TID #10 tab 09/08/16 Fluconazole [Diflucan] 100 mg PO DAILY #1 tab 09/08/16 Fluticasone Nasal [Flonase] 1 spr NS DAILY #1 spr 09/08/16 Sulfamethoxazole/Trimethoprim 1 tab PO BID #20 tab 09/08/16 [Bactrim DS Tab] Naproxen [Naprosyn Tab] 375 mg PO Q8 PRN #21 tab 09/15/16 Naproxen [Naprosyn] 500 mg PO BID PRN #15 tablet 08/01/17 Diclofenac Sodium [Voltaren] 1 appl TP BID PRN #1 12/17/16 Cephalexin [Keflex] 500 mg PO TID 01/02/17 oxyCODONE/Acetaminophen [Percocet 1 ea PO Q4 PRN 01/02/17 5/325 mg Tab] oxyCODONE/Acetaminophen [Percocet 1 tab PO Q6H PRN #5 tab 02/25/17 5/325 mg Tab] Naproxen [Naprosyn] 500 mg PO BID PRN #15 tablet 04/20/17 - Allergies Allergies/Adverse Reactions: Allergies Allergy/AdvReac Type Severity Reaction Status Date / Time tramadol AdvReac DIZZINESS Verified 12/17/16 10:02 Review of Systems ROS Statement: Except As Marked, All Systems Reviewed And Found Negative Constitutional: Positive for: Other (Body aches). Negative for: Fever, Chills ENT: Positive for: Ear Pain, Throat Pain Respiratory: Positive for: Cough Genitourinary Female: Positive for: Dysuria, Frequency. Negative for: Hematuria Neurological: Positive for: Headache Physical Exam - Reviewed Nursing Documentation Reviewed: Yes Vital Signs Reviewed: Yes - Physical Exam Appears: Positive for: Non-toxic, No Acute Distress Head Exam: Positive for: ATRAUMATIC, NORMAL INSPECTION, NORMOCEPHALIC Skin: Positive for: Normal Color, Warm, Dry Eye Exam: Positive for: EOMI, Normal appearance, PERRL ENT: Positive for: Normal ENT Inspection, TM Is/Are (normal bilaterally). Negative for: Pharyngeal Erythema, Tonsillar Exudate Neck: Positive for: Normal, Painless ROM, Supple Cardiovascular/Chest: Positive for: Regular Rate, Rhythm. Negative for: Murmur Respiratory: Positive for: Normal Breath Sounds. Negative for: Accessory Muscle Use, Wheezing, Respiratory Distress Gastrointestinal/Abdominal: Positive for: Normal Exam, Soft. Negative for: Tenderness, Distended Back: Positive for: Normal Inspection. Negative for: Vertebral Tenderness Extremity: Positive for: Normal ROM, Other (Surgical shoe R foot). Negative for : Pedal Edema, Deformity Neurologic/Psych: Positive for: Alert, Oriented - Laboratory Results Result Diagrams: 04/20/17 10:26 04/20/17 10:26 - ECG O2 Sat by Pulse Oximetry: 99 (RA) Pulse Ox Interpretation: Normal Medical Decision Making Medical Decision Making: Initial Impression: Flu-like symptoms Time: 9:56 Initial Plan: --Urine dip --Urine --CMP --CBC w/ differential --Influenza A B --Rapid strep test --Throat culture --Chest x-ray --Urinalysis --NS IV 1000 ml at 1000 mls/hr --Toradol 15mg IV --Reevaluation Labs reviewed: Negative for flu and strep. Alk phos and LFTs elevated. WBC is 4.3 Time: 11:11 Tylenol 650mg PO given Time: 11:18 CHEST X-RAY: FINDINGS: LUNGS: No active pulmonary disease. PLEURA: No significant pleural effusion identified. No pneumothorax apparent. CARDIOVASCULAR: Normal. OSSEOUS STRUCTURES: No significant abnormalities. VISUALIZED UPPER ABDOMEN: Normal. OTHER FINDINGS: None. IMPRESSION: No active disease. No significant interval change compared to the prior examination(s). Time: 13:38 Notified by RN that patient tripped and fell onto the floor while getting up from bed. Did not hit head but is now complaining of left knee pain. Reexamined patient: (+) Superficial abrasion to left knee Will order x-ray of left knee. Patient is stable for discharge home. Provided with prescription for Naproxen. Counseled regarding diagnosis and the need for follow up with PMD. There is agreement to discharge plan. Return if symptoms persist or worsen. Time: 14:47 X-RAY LEFT KNEE: FINDINGS: BONES: Normal. No fracture. JOINTS: Normal. No osteoarthritis. JOINT EFFUSION: None. OTHER FINDINGS: Incidental finding(s): Small exostosis medial tibial plateau. IMPRESSION: No significant or acute findings to account for/ related to the clinical presentation. No significant interval change compared to the prior examination(s). Scribe Attestation: Documented by Yamel Hart, acting as a scribe for Beatris Gallo MD Provider Scribe Attestation: All medical record entries made by the Radhaibe were at my direction and personally dictated by me. I have reviewed the chart and agree that the record accurately reflects my personal performance of the history, physical exam, medical decision making, and the department course for this patient. I have also personally directed, reviewed, and agree with the discharge instructions and disposition. Disposition - Clinical Impression Clinical Impression: Influenza-like symptoms, Knee contusion - Patient ED Disposition Is Patient to be Admitted: No Counseled Patient/Family Regarding: Studies Performed, Diagnosis, Need For Followup, Rx Given - Disposition Referrals: [facility] [Outside] Disposition: Routine/Home Disposition Time: 14:19 Condition: STABLE Prescriptions: Naproxen [Naprosyn] 500 mg PO BID PRN #15 tablet PRN Reason: Pain, Moderate (4-7) Instructions: Contusion in Adults (ED), Viral Syndrome (ED) Forms: [email or web address] (Armenian)
[2017-04-20 10:32] LABS: BASO # 0.1 K/uL (0.0-0.2); BASO % 1.8 % (0.0-2.0); EOS # 0.2 K/uL (0.0-0.7); EOS % 5.2 % (0.0-4.0); HEMOGLOBIN 12.4 g/dL (12.0-16.0); LYMPH # 1.4 K/uL (1.0-4.3); LYMPH % 33.2 % (20.0-40.0); MEAN CORPUSCULAR HEMOGLOBIN 30.8 pg (27.0-31.0); MEAN CORPUSCULAR HGB CONC 33.4 g/dL (33.0-37.0); MEAN PLATELET VOLUME 8.7 fl (7.2-11.7); MONO # 0.6 K/uL (0.0-0.8); MONO % 12.8 % (0.0-10.0); NRBC % 0.1 % (0.0-0.0); RBC 4.02 Mil/uL (3.80-5.20); RED CELL DISTRIBUTION WIDTH 13.4 % (11.5-14.5); WHITE BLOOD COUNT 4.3 K/uL (4.8-10.8)
[2017-04-20 10:38] LABS: SQUAMOUS EPITHIAL 36 /hpf (0-5); URINE BACTERIA RARE (<OCC); URINE BILIRUBIN NEGATIVE (NEGATIVE); URINE BLOOD NEGATIVE (NEGATIVE); URINE CLARITY CLOUDY (Clear); URINE COLOR YELLOW (YELLOW); URINE GLUCOSE (UA) NEG (Normal); URINE LEUKOCYTE ESTERASE NEG Leu/uL (Negative); URINE NITRATE NEGATIVE (NEGATIVE); URINE PROTEIN NEGATIVE (NEGATIVE); URINE UROBILINOGEN 0.2-1.0 mg/dL (0.2-1.0)
[2017-04-20 10:49] LABS: ALBUMIN 4.1 g/dL (3.5-5.0); ALT/SGPT 92 U/L (9-52); AST/SGOT 97 U/L (14-36); BLOOD UREA NITROGEN 11 mg/dl (7-17); CALCIUM 9.6 mg/dL (8.4-10.2); GFR AFRICAN-AMERICAN > 60; GFR NON-AFRICAN AMERICAN > 60
--- NOTE | 2017-04-20 11:20 | RAD ---
HISTORY: Cough COMPARISON: 12/24/2016 TECHNIQUE: Chest PA and lateral FINDINGS: LUNGS: No active pulmonary disease. PLEURA: No significant pleural effusion identified. No pneumothorax apparent. CARDIOVASCULAR: Normal. OSSEOUS STRUCTURES: No significant abnormalities. VISUALIZED UPPER ABDOMEN: Normal. OTHER FINDINGS: None. IMPRESSION: No active disease. No significant interval change compared to the prior examination(s).
[2017-04-20 14:31] VITALS: BP 128/68; PULSE 52; RESP 18; TEMP 98.6
--- NOTE | 2017-04-20 14:48 | RAD ---
PROCEDURE: Left Knee Radiographs. HISTORY: Pain. No history of recent/ related trauma provided COMPARISON: 07.30.15 FINDINGS: BONES: Normal. No fracture. JOINTS: Normal. No osteoarthritis. JOINT EFFUSION: None. OTHER FINDINGS: Incidental finding(s): Small exostosis medial tibial plateau. IMPRESSION: No significant or acute findings to account for/ related to the clinical presentation. No significant interval change compared to the prior examination(s).
[2017-04-20 16:55] VITALS: O2SAT 99
== END 2017-04-20 14:34 | disposition home or self-care (01) ==
LOC: H.ER 08:36
DX: B34.9 Viral infection, unspecified (principal); S80.02XA Contusion of left knee, initial encounter; S80.212A Abrasion, left knee, initial encounter; W01.0XXA Fall on same level from slipping, tripping and stumbling without subsequent striking against object, initial encounter; Y92.238 Other place in hospital as the place of occurrence of the external cause; F32.9 Major depressive disorder, single episode, unspecified; F41.9 Anxiety disorder, unspecified
CPT/HCPCS: 71046; 73562; 80053; 81003; 81025; 85025; 87070; 87430; 87804; 96374; 99285; J1885; J7040

== ENCOUNTER 2017-04-22 08:17 | Emergency (ER) | payer OTHER ==
[2017-04-22 08:18] VITALS: BMI 26.9
[2017-04-22 08:23] VITALS: BP 117/66; PULSE 68; RESP 19; TEMP 97.2; O2SAT 98
--- NOTE | 2017-04-22 09:32 | ED PDOC ---
Upper Extremity Pain/Injury Time Seen by Provider: 04/22/17 08:55 Chief Complaint (Nursing): Upper Extremity Problem/Injury Chief Complaint (Provider): Left Shoulder Pain History Per: Patient History/Exam Limitations: no limitations Onset/Duration Of Symptoms: Days (x 2) Current Symptoms Are (Timing): Still Present Additional Complaint(s): Marie is a 46 y/o female who presents to the ED complaining of pain in her left shoulder and arm after falling 2 days ago. Patient states that she was here Thursday for viral symptoms and upon discharge, she tripped and fell, injuring her knee. Later, she developed left shoulder pain related to the fall. PMD: Kurt Auguste Past Medical History Reviewed: Historical Data, Nursing Documentation, Vital Signs Vital Signs: Last Vital Signs Temp 97.2 F L 04/22/17 08:23 Pulse 68 04/22/17 08:23 Resp 19 04/22/17 08:23 BP 117/66 04/22/17 08:23 Pulse Ox 98 04/22/17 08:23 - Medical History PMH: Anxiety, Arthritis, Depression, Gastritis, Hepatitis (recently diagnosed) Denies: Chronic Kidney Disease - Family History Family History: States: Unknown Family Hx - Immunization History Hx Tetanus Toxoid Vaccination: Yes (3 years ago) - Home Medications Home Medications: Ambulatory Orders Medication Instructions Recorded Clonazepam [Klonopin] 2 mg PO QID PRN 12/11/15 Pantoprazole [Protonix EC Tab] 40 mg PO DAILY 12/11/15 Cephalexin [Keflex] 500 mg PO TID 04/25/16 Ibuprofen [Motrin Tab] 1 mg PO Q12 PRN 04/25/16 Cyclobenzaprine [Flexeril] 10 mg PO TID #10 tab 09/08/16 Fluconazole [Diflucan] 100 mg PO DAILY #1 tab 09/08/16 Fluticasone Nasal [Flonase] 1 spr NS DAILY #1 spr 09/08/16 Sulfamethoxazole/Trimethoprim 1 tab PO BID #20 tab 09/08/16 [Bactrim DS Tab] Naproxen [Naprosyn Tab] 375 mg PO Q8 PRN #21 tab 09/15/16 Naproxen [Naprosyn] 500 mg PO BID PRN #15 tablet 10/28/16 Diclofenac Sodium [Voltaren] 1 appl TP BID PRN #1 12/17/16 Cephalexin [Keflex] 500 mg PO TID 01/02/17 oxyCODONE/Acetaminophen [Percocet 1 ea PO Q4 PRN 01/02/17 5/325 mg Tab] oxyCODONE/Acetaminophen [Percocet 1 tab PO Q6H PRN #5 tab 02/25/17 5/325 mg Tab] Naproxen [Naprosyn] 500 mg PO BID PRN #15 tablet 04/20/17 Lidocaine 5% [Lidoderm] 1 patch TD DAILY #10 patch 04/22/17 - Allergies Allergies/Adverse Reactions: Allergies Allergy/AdvReac Type Severity Reaction Status Date / Time tramadol AdvReac DIZZINESS Verified 12/17/16 10:02 Review of Systems ROS Statement: Except As Marked, All Systems Reviewed And Found Negative Musculoskeletal: Positive for: Shoulder Pain (left), Arm Pain (left) Physical Exam - Reviewed Nursing Documentation Reviewed: Yes Vital Signs Reviewed: Yes - Physical Exam Appears: Positive for: Well, Non-toxic, No Acute Distress Skin: Positive for: Normal Color, Warm, Dry Extremity: Positive for: Tenderness (left arm and shoulder). Negative for: Normal ROM - ECG O2 Sat by Pulse Oximetry: 98 (RA) Pulse Ox Interpretation: Normal - Radiology X-Ray: Read By Radiologist X-Ray Interpretation: No Acute Disease - Progress Re-evaluation Time: 12:30 Condition: Improved Medical Decision Making Medical Decision Making: Time: 9:06 Initial Impression: Fall related injury Initial Plan: --Urine Dip --Toradol --Left forearm, humerus, and shoulder XRs Scribe Attestation: Documented by Tristan Barnes, acting as a scribe for Nicol Banks MD Provider Scribe Attestation: All medical record entries made by the Scribe were at my direction and personally dictated by me. I have reviewed the chart and agree that the record accurately reflects my personal performance of the history, physical exam, medical decision making, and the department course for this patient. I have also personally directed, reviewed, and agree with the discharge instructions and disposition. Disposition - Clinical Impression Clinical Impression: Shoulder pain, acute - Patient ED Disposition Is Patient to be Admitted: No Doctor Will See Patient In The: Office Counseled Patient/Family Regarding: Diagnosis, Need For Followup, Rx Given - Disposition Disposition: Routine/Home Disposition Time: 12:45 Condition: IMPROVED Prescriptions: Lidocaine 5% [Lidoderm] 1 patch TD DAILY #10 patch Instructions: Fall Prevention (ED) Forms: [employer] (Croatian) - POA Present On Arrival: Falls Or Trauma
--- NOTE | 2017-04-22 10:49 | RAD ---
PROCEDURE: Radiographs of the left humerus. HISTORY: fall 2 days ago COMPARISON: None. FINDINGS: BONES: Normal. No fracture or focal lesion. SOFT TISSUES: Normal. OTHER FINDINGS: None. IMPRESSION: Normal radiographs of left humerus.
--- NOTE | 2017-04-22 10:52 | RAD ---
PROCEDURE: HISTORY: fall 2 days ago COMPARISON: None TECHNIQUE: Two views FINDINGS: No fracture, lytic lesion or abnormal bone mineralization noted IMPRESSION: Negative exam
--- NOTE | 2017-04-22 11:01 | RAD ---
PROCEDURE: Radiographs of the Left Shoulder HISTORY: fall 2 days ago COMPARISON: No prior. FINDINGS: BONES: Normal. No fracture. JOINTS: Normal. Glenohumeral and acromioclavicular joints preserved. No osteoarthritis. SOFT TISSUES: Normal. OTHER FINDINGS: None. IMPRESSION: Normal radiographs of the left shoulder.
[2017-04-22] MEDS ORDERED: Lidocaine 5% Patch TD STA (11:49)
== END 2017-04-22 13:24 | disposition home or self-care (01) ==
LOC: H.ER 08:17
DX: M25.512 Pain in left shoulder (principal); W19.XXXA Unspecified fall, initial encounter; Z86.59 Personal history of other mental and behavioral disorders; K75.9 Inflammatory liver disease, unspecified
CPT/HCPCS: 73030; 73060; 73090; 81025; 96372; 99282; J1885

== ENCOUNTER 2017-07-20 09:04 | Emergency (ER) | payer OTHER ==
[2017-07-20 09:08] VITALS: BMI 29.1
[2017-07-20 09:10] VITALS: BP 107/66; PULSE 65; RESP 20; TEMP 97.6; O2SAT 98
--- NOTE | 2017-07-20 10:41 | ED PDOC ---
HPI: Female Pain Time Seen by Provider: 07/20/17 10:32 Chief Complaint (Nursing): Female Genitourinary Chief Complaint (Provider): UTI History Per: Patient History/Exam Limitations: no limitations Onset/Duration Of Symptoms: Days (3) Quality Of Discomfort: Sharp Associated Symptoms: Urinary Symptoms Alleviating Factors: None Abnormal Vaginal Bleeding: No Past Medical History Reviewed: Historical Data Vital Signs: Last Vital Signs Temp 97.6 F 07/20/17 09:09 Pulse 65 07/20/17 09:09 Resp 20 07/20/17 09:09 BP 107/66 07/20/17 09:09 Pulse Ox 98 07/20/17 09:09 - Medical History PMH: Anxiety, Arthritis, Depression, Gastritis, Hepatitis (recently diagnosed) Denies: Chronic Kidney Disease - Family History Family History: States: Unknown Family Hx - Immunization History Hx Tetanus Toxoid Vaccination: Yes (3 years ago) - Home Medications Home Medications: Ambulatory Orders Medication Instructions Recorded Clonazepam [Klonopin] 2 mg PO QID PRN 12/11/15 Pantoprazole [Protonix EC Tab] 40 mg PO DAILY 12/11/15 Cephalexin [Keflex] 500 mg PO TID 04/25/16 Ibuprofen [Motrin Tab] 1 mg PO Q12 PRN 04/25/16 Cyclobenzaprine [Flexeril] 10 mg PO TID #10 tab 09/08/16 Fluconazole [Diflucan] 100 mg PO DAILY #1 tab 09/08/16 Fluticasone Nasal [Flonase] 1 spr NS DAILY #1 spr 09/08/16 Sulfamethoxazole/Trimethoprim 1 tab PO BID #20 tab 09/08/16 [Bactrim DS Tab] Naproxen [Naprosyn Tab] 375 mg PO Q8 PRN #21 tab 09/15/16 Naproxen [Naprosyn] 500 mg PO BID PRN #15 tablet 10/28/16 Diclofenac Sodium [Voltaren] 1 appl TP BID PRN #1 12/17/16 Cephalexin [Keflex] 500 mg PO TID 01/02/17 oxyCODONE/Acetaminophen [Percocet 1 ea PO Q4 PRN 01/02/17 5/325 mg Tab] oxyCODONE/Acetaminophen [Percocet 1 tab PO Q6H PRN #5 tab 02/25/17 5/325 mg Tab] Naproxen [Naprosyn] 500 mg PO BID PRN #15 tablet 04/20/17 Lidocaine 5% [Lidoderm] 1 patch TD DAILY #10 patch 04/22/17 Phenazopyridine HCl [Pyridium] 200 mg PO TID #12 tablet 07/20/17 Sulfamethoxazole/Trimethoprim 1 tab PO BID #20 tab 07/20/17 [Bactrim DS 800 mg-160 mg] - Allergies Allergies/Adverse Reactions: Allergies Allergy/AdvReac Type Severity Reaction Status Date / Time tramadol AdvReac DIZZINESS Verified 12/17/16 10:02 Review of Systems ROS Statement: Except As Marked, All Systems Reviewed And Found Negative Genitourinary Female: Positive for: Dysuria, Frequency. Negative for: Vaginal Discharge, Vaginal Bleeding Physical Exam - Reviewed Nursing Documentation Reviewed: Yes - Physical Exam Appears: Positive for: Well, Non-toxic, No Acute Distress. Negative for: Uncomfortable Head Exam: Positive for: ATRAUMATIC, NORMOCEPHALIC Skin: Positive for: Normal Color Neck: Positive for: Normal, Painless ROM, Supple. Negative for: Decreased ROM Cardiovascular/Chest: Positive for: Regular Rate, Rhythm, Chest Non Tender. Negative for: Edema, Gallop, Bradycardia, Tachycardia, Friction Rub Respiratory: Positive for: Normal Breath Sounds. Negative for: Decreased Breath Sounds, Accessory Muscle Use, Crackles, Rales, Rhonchi, Stridor, Wheezing , Respiratory Distress, Plerual Rub Pulses-Carotid (L): 2+ Pulses-Carotid (R): 2+ Pulses-Radial (L): 2+ Pulses-Radial (R): 2+ Gastrointestinal/Abdominal: Positive for: Tenderness (suprapubic tenderness to palpation) Back: Positive for: Normal Inspection. Negative for: L CVA Tenderness, R CVA Tenderness, Vertebral Tenderness, Decreased ROM - ECG O2 Sat by Pulse Oximetry: 98 Medical Decision Making Medical Decision Making: R/O UTI based on symptoms and hx UA aupports UTI will treat with bactrim DS Disposition - Clinical Impression Clinical Impression: Dysuria, Chronic urinary tract infection - Patient ED Disposition Is Patient to be Admitted: No Doctor Will See Patient In The: Office Counseled Patient/Family Regarding: Studies Performed, Diagnosis, Need For Followup, Rx Given - Disposition Referrals: [facility] [Outside] Disposition: Routine/Home Disposition Time: 12:53 Condition: GOOD Prescriptions: Phenazopyridine HCl [Pyridium] 200 mg PO TID #12 tablet Sulfamethoxazole/Trimethoprim [Bactrim DS 800 mg-160 mg] 1 tab PO BID #20 tab Instructions: Urinary Tract Infections in Adults, Urinary Tract Infection, Adult (DC), Dysuria, Adult (DC) Forms: [employer] ([place]an)
[2017-07-20 12:42] LABS: SQUAMOUS EPITHIAL 8 /hpf (0-5); URINE BACTERIA RARE (<OCC); URINE BILIRUBIN NEGATIVE (NEGATIVE); URINE BLOOD SMALL (NEGATIVE); URINE CLARITY SLIGHTY-CLOUDY (Clear); URINE COLOR YELLOW (YELLOW); URINE GLUCOSE (UA) NEG (Normal); URINE LEUKOCYTE ESTERASE MOD Leu/uL (Negative); URINE PROTEIN NEGATIVE (NEGATIVE); URINE UROBILINOGEN 0.2-1.0 mg/dL (0.2-1.0)
== END 2017-07-20 13:05 | disposition home or self-care (01) ==
LOC: H.ER 09:04
DX: N39.0 Urinary tract infection, site not specified (principal); F32.9 Major depressive disorder, single episode, unspecified; F41.9 Anxiety disorder, unspecified

== ENCOUNTER 2017-09-28 11:33 | Emergency (ER) | payer OTHER ==
[2017-09-28 11:36] VITALS: BMI 28.3
[2017-09-28 11:38] VITALS: RESP 16; TEMP 98.3
[2017-09-28 12:34] LABS: BASO # 0.1 K/uL (0.0-0.2); BASO % 1.2 % (0.0-2.0); EOS # 0.2 K/uL (0.0-0.7); EOS % 5.3 % (0.0-4.0); HEMOGLOBIN 12.1 g/dL (12.0-16.0); LYMPH # 1.4 K/uL (1.0-4.3); LYMPH % 29.9 % (20.0-40.0); MEAN CELL VOLUME 92.3 fl (81.0-99.0); MEAN CORPUSCULAR HEMOGLOBIN 31.6 pg (27.0-31.0); MEAN CORPUSCULAR HGB CONC 34.2 g/dL (33.0-37.0); MEAN PLATELET VOLUME 8.8 fl (7.2-11.7); MONO # 0.6 K/uL (0.0-0.8); MONO % 12.2 % (0.0-10.0); NEUT # 2.3 K/uL (1.8-7.0); NEUT % 51.4 % (50.0-75.0); RBC 3.83 Mil/uL (3.80-5.20); RED CELL DISTRIBUTION WIDTH 13.8 % (11.5-14.5); WHITE BLOOD COUNT 4.6 K/uL (4.8-10.8)
[2017-09-28 12:37] LABS: SQUAMOUS EPITHIAL 2 /hpf (0-5); URINE BILIRUBIN NEGATIVE (NEGATIVE); URINE BLOOD SMALL (NEGATIVE); URINE CLARITY CLOUDY (Clear); URINE COLOR YELLOW (YELLOW); URINE GLUCOSE (UA) NEG (Normal); URINE LEUKOCYTE ESTERASE MOD Leu/uL (Negative); URINE PROTEIN NEGATIVE (NEGATIVE); URINE UROBILINOGEN 0.2-1.0 mg/dL (0.2-1.0)
[2017-09-28 12:45] LABS: BLOOD UREA NITROGEN 13 mg/dl (7-17); CALCIUM 9.6 mg/dL (8.4-10.2); GFR AFRICAN-AMERICAN > 60; GFR NON-AFRICAN AMERICAN > 60
--- NOTE | 2017-09-28 13:11 | ED PDOC ---
HPI: Female Pain Time Seen by Provider: 09/28/17 11:57 Chief Complaint (Nursing): Female Genitourinary Chief Complaint (Provider): Female Genitourinary History Per: Patient History/Exam Limitations: no limitations Associated Symptoms: denies: Fever, Vomiting Additional Complaint(s): 46 years old female with history of frequent UTI presents to the ED for evaluation of dysuria onset 1 month. Patient reports associated suprabupic pain when urinating and some back pain. She states she used to take Bactrim but finished it recently. She denies any fever, or vomiting. PMD:Kurt Auguste Past Medical History Reviewed: Historical Data, Nursing Documentation, Vital Signs Vital Signs: Last Vital Signs Temp 98.3 F 09/28/17 11:37 Pulse 72 09/28/17 11:37 Resp 16 09/28/17 11:37 BP 120/71 09/28/17 11:37 Pulse Ox 97 09/28/17 11:37 - Medical History PMH: Anxiety, Arthritis, Depression, Gastritis, Hepatitis (recently diagnosed) Denies: Chronic Kidney Disease - Surgical History Surgical History: No Surg Hx - Family History Family History: States: Unknown Family Hx - Social History Current smoker - smoking cessation education provided: No Alcohol: Social Drugs: Denies - Immunization History Hx Tetanus Toxoid Vaccination: Yes (3 years ago) - Home Medications Home Medications: Ambulatory Orders Medication Instructions Recorded Clonazepam [Klonopin] 2 mg PO QID PRN 12/11/15 Pantoprazole [Protonix EC Tab] 40 mg PO DAILY 12/11/15 Cephalexin [Keflex] 500 mg PO TID 04/25/16 Ibuprofen [Motrin Tab] 1 mg PO Q12 PRN 04/25/16 Cyclobenzaprine [Flexeril] 10 mg PO TID #10 tab 09/08/16 Fluticasone Nasal [Flonase] 1 spr NS DAILY #1 spr 09/08/16 Sulfamethoxazole/Trimethoprim 1 tab PO BID #20 tab 09/08/16 [Bactrim DS Tab] Naproxen [Naprosyn Tab] 375 mg PO Q8 PRN #21 tab 09/15/16 Naproxen [Naprosyn] 500 mg PO BID PRN #15 tablet 10/28/16 Diclofenac Sodium [Voltaren] 1 appl TP BID PRN #1 12/17/16 Cephalexin [Keflex] 500 mg PO TID 01/02/17 oxyCODONE/Acetaminophen [Percocet 1 ea PO Q4 PRN 01/02/17 5/325 mg Tab] oxyCODONE/Acetaminophen [Percocet 1 tab PO Q6H PRN #5 tab 02/25/17 5/325 mg Tab] Naproxen [Naprosyn] 500 mg PO BID PRN #15 tablet 04/20/17 Lidocaine 5% [Lidoderm] 1 patch TD DAILY #10 patch 04/22/17 Phenazopyridine HCl [Pyridium] 200 mg PO TID #12 tablet 07/20/17 Sulfamethoxazole/Trimethoprim 1 tab PO BID #20 tab 07/20/17 [Bactrim DS 800 mg-160 mg] Ciprofloxacin HCl [Cipro] 500 mg PO BID #28 tablet 09/28/17 Fluconazole [Diflucan] 100 mg PO DAILY #1 tab 09/28/17 Phenazopyridine HCl [Pyridium] 200 mg PO TID PRN #9 tablet 09/28/17 - Allergies Allergies/Adverse Reactions: Allergies Allergy/AdvReac Type Severity Reaction Status Date / Time tramadol AdvReac DIZZINESS Verified 12/17/16 10:02 Review of Systems ROS Statement: Except As Marked, All Systems Reviewed And Found Negative Constitutional: Negative for: Fever Gastrointestinal: Positive for: Abdominal Pain (suprabupic). Negative for: Vomiting Genitourinary Female: Positive for: Dysuria Musculoskeletal: Positive for: Back Pain Physical Exam - Reviewed Nursing Documentation Reviewed: Yes Vital Signs Reviewed: Yes - Physical Exam Appears: Positive for: Non-toxic, No Acute Distress Head Exam: Positive for: ATRAUMATIC, NORMOCEPHALIC Skin: Positive for: Normal Color, Warm, Dry Eye Exam: Positive for: Normal appearance, EOMI, PERRL ENT: Positive for: Normal ENT Inspection Neck: Positive for: Normal, Painless ROM, Supple Cardiovascular/Chest: Positive for: Regular Rate, Rhythm. Negative for: Murmur Respiratory: Positive for: Normal Breath Sounds. Negative for: Respiratory Distress Gastrointestinal/Abdominal: Positive for: Normal Exam, Soft. Negative for: Tenderness Back: Positive for: Normal Inspection. Negative for: L CVA Tenderness, R CVA Tenderness Extremity: Positive for: Normal ROM. Negative for: Tenderness, Swelling Neurologic/Psych: Positive for: Alert, Oriented - Laboratory Results Result Diagrams: 09/28/17 12:20 09/28/17 12:20 - ECG O2 Sat by Pulse Oximetry: 97 (RA) Pulse Ox Interpretation: Normal Medical Decision Making Medical Decision Making: Time: 1214 Initial Impression: Dysuria. Differential includes but not limited to recurrent UTI. Initial Plan: --Urine Dipstick --Motrin 400 mg PO --Pyridium 200 mg PO --Urine Culture ----- Scribe Attestation: Documented by Danay Gibbons, acting as a scribe for Ani Dickey MD. Provider Scribe Attestation: All medical record entries made by the Scribe were at my direction and personally dictated by me. I have reviewed the chart and agree that the record accurately reflects my personal performance of the history, physical exam, medical decision making, and the department course for this patient. I have also personally directed, reviewed, and agree with the discharge instructions and disposition. Disposition - Clinical Impression Clinical Impression: UTI (urinary tract infection) Doctor Will See Patient In The: Office Counseled Patient/Family Regarding: Studies Performed, Diagnosis, Need For Followup - Disposition Referrals: Emily Cortes MD [Medical Doctor] - Milla Dias MD [Medical Doctor] - Disposition: Routine/Home Disposition Time: 14:00 Condition: GOOD Additional Instructions: Take your medications as instructed. Follow up with urologist and pelvic clinic within 1 week. Return for worsening. Prescriptions: Ciprofloxacin HCl [Cipro] 500 mg PO BID #28 tablet Fluconazole [Diflucan] 100 mg PO DAILY #1 tab Phenazopyridine HCl [Pyridium] 200 mg PO TID PRN #9 tablet PRN Reason: Bladder Spasm Instructions: Urinary Tract Infections in Adults
[2017-09-28 14:49] VITALS: BP 125/80; PULSE 75
[2017-09-28 15:59] VITALS: O2SAT 97
== END 2017-09-28 14:50 | disposition home or self-care (01) ==
LOC: H.ER 11:33
DX: N39.0 Urinary tract infection, site not specified (principal); F32.9 Major depressive disorder, single episode, unspecified; F41.9 Anxiety disorder, unspecified

== ENCOUNTER 2017-12-30 13:16 | Emergency (ER) | payer OTHER ==
[2017-12-30 13:16] VITALS: BMI 28.3
[2017-12-30 13:23] VITALS: RESP 18; TEMP 97.8; O2SAT 99
[2017-12-30] MEDS ORDERED: Sodium Chloride 0.9% 1,000 ML IV STA (13:28)
[2017-12-30] MEDS ORDERED: Iohexol 240 (50 ml) PO ONE (13:39)
--- NOTE | 2017-12-30 13:42 | ED PDOC ---
HPI: Abdomen Time Seen by Provider: 12/30/17 13:26 Chief Complaint (Nursing): Abdominal Pain Chief Complaint (Provider): Abd pain History Per: Patient History/Exam Limitations: no limitations Onset/Duration Of Symptoms: Days (5) Additional History Per: Patient Additional Complaint(s): Pt. with abd pain. Diffuse. No nausea, vomit, diarrhea. Has elevated liver enzymes. Sees Dr. Skinner. Tried to see her today but not able to. No back pain. Has dysuria. No back pain. No fever. No chest pain, dyspnea. Has had similar pain with her gastritis and her liver issues. Past Medical History Reviewed: Nursing Documentation, Vital Signs Vital Signs: Last Vital Signs Temp 97.8 F 12/30/17 13:21 Pulse 69 12/30/17 13:21 Resp 18 12/30/17 13:21 BP 109/69 12/30/17 13:21 Pulse Ox 99 12/30/17 13:21 - Medical History PMH: Anxiety, Arthritis, Depression, Gastritis, Hepatitis (recently diagnosed) Denies: Chronic Kidney Disease Other PMH: uti hx - Surgical History Surgical History: No Surg Hx - Family History Family History: States: Unknown Family Hx - Immunization History Hx Tetanus Toxoid Vaccination: Yes (3 years ago) - Home Medications Home Medications: Ambulatory Orders Medication Instructions Recorded Clonazepam [Klonopin] 2 mg PO QID PRN 12/11/15 Pantoprazole [Protonix EC Tab] 40 mg PO DAILY 12/11/15 Cephalexin [Keflex] 500 mg PO TID 04/25/16 Ibuprofen [Motrin Tab] 1 mg PO Q12 PRN 04/25/16 Cyclobenzaprine [Flexeril] 10 mg PO TID #10 tab 09/08/16 Fluticasone Nasal [Flonase] 1 spr NS DAILY #1 spr 09/08/16 Sulfamethoxazole/Trimethoprim 1 tab PO BID #20 tab 09/08/16 [Bactrim DS Tab] Naproxen [Naprosyn Tab] 375 mg PO Q8 PRN #21 tab 09/15/16 Naproxen [Naprosyn] 500 mg PO BID PRN #15 tablet 10/28/16 Diclofenac Sodium [Voltaren] 1 appl TP BID PRN #1 12/17/16 Cephalexin [Keflex] 500 mg PO TID 01/02/17 oxyCODONE/Acetaminophen [Percocet 1 ea PO Q4 PRN 01/02/17 5/325 mg Tab] oxyCODONE/Acetaminophen [Percocet 1 tab PO Q6H PRN #5 tab 02/25/17 5/325 mg Tab] Naproxen [Naprosyn] 500 mg PO BID PRN #15 tablet 04/20/17 Lidocaine 5% [Lidoderm] 1 patch TD DAILY #10 patch 04/22/17 Phenazopyridine HCl [Pyridium] 200 mg PO TID #12 tablet 07/20/17 Sulfamethoxazole/Trimethoprim 1 tab PO BID #20 tab 07/20/17 [Bactrim DS 800 mg-160 mg] Ciprofloxacin HCl [Cipro] 500 mg PO BID #28 tablet 09/28/17 Fluconazole [Diflucan] 100 mg PO DAILY #1 tab 09/28/17 Phenazopyridine HCl [Pyridium] 200 mg PO TID PRN #9 tablet 09/28/17 - Allergies Allergies/Adverse Reactions: Allergies Allergy/AdvReac Type Severity Reaction Status Date / Time tramadol AdvReac DIZZINESS Verified 12/17/16 10:02 Review of Systems ROS Statement: Except As Marked, All Systems Reviewed And Found Negative Gastrointestinal: Positive for: Abdominal Pain Genitourinary Female: Positive for: Dysuria Physical Exam - Reviewed Nursing Documentation Reviewed: Yes Vital Signs Reviewed: Yes - Physical Exam Appears: Positive for: Non-toxic, No Acute Distress Head Exam: Positive for: ATRAUMATIC, NORMAL INSPECTION, NORMOCEPHALIC Skin: Positive for: Normal Color, Warm, DRY Eye Exam: Positive for: EOMI, Normal appearance, PERRL ENT: Positive for: Normal ENT Inspection Neck: Positive for: Normal, Painless ROM Cardiovascular/Chest: Positive for: Regular Rate, Rhythm Respiratory: Positive for: CNT, Normal Breath Sounds Gastrointestinal/Abdominal: Positive for: Soft, Tenderness (diffuse) Back: Positive for: Normal Inspection. Negative for: L CVA Tenderness, R CVA Tenderness Extremity: Positive for: Normal ROM. Negative for: Tenderness, Pedal Edema Neurologic/Psych: Positive for: Alert, Oriented - Laboratory Results Result Diagrams: 12/30/17 14:35 12/30/17 14:35 Interpretation Of Abn Labs: elevated liver enzymes - ECG O2 Sat by Pulse Oximetry: 99 Pulse Ox Interpretation: Normal - Progress ED Course And Treament: 1601: Pt. refusing to stay for further evaluation and treatment. Ct read pending. Pt. aware of possible or decreased functioning from abd pain related issues. Has capacity to make decisions. Is AAOx3. Pain free currently. Labs similar to previous. Disposition - Clinical Impression Clinical Impression: Abdominal pain - Patient ED Disposition Is Patient to be Admitted: No - Disposition Referrals: Elena Skinner MD [Medical Doctor] - 12/31/17 Disposition: Against Medical Advice Disposition Time: 18:03 Condition: STABLE Additional Instructions: You are going against medical advice. Your catscan is not read and we do not know what is going on. You can or have decreased functioning from your abd pain. Return soon as possible for further evaluation and treatment. Instructions: Stomach Ache and Stomach Upset
[2017-12-30 14:38] LABS: BASO # 0.1 K/uL (0.0-0.2); BASO % 2.5 % (0.0-2.0); EOS # 0.2 K/uL (0.0-0.7); EOS % 4.2 % (0.0-4.0); HEMOGLOBIN 12.1 g/dL (12.0-16.0); LYMPH # 1.7 K/uL (1.0-4.3); MEAN CELL VOLUME 92.7 fl (81.0-99.0); MEAN CORPUSCULAR HGB CONC 34.5 g/dL (33.0-37.0); MEAN PLATELET VOLUME 8.5 fl (7.2-11.7); MONO # 0.5 K/uL (0.0-0.8); MONO % 11.9 % (0.0-10.0); NEUT # 1.8 K/uL (1.8-7.0); NEUT % 41.4 % (50.0-75.0); NRBC % 0.1 % (0.0-0.0); RBC 3.78 Mil/uL (3.80-5.20); RED CELL DISTRIBUTION WIDTH 13.7 % (11.5-14.5); WHITE BLOOD COUNT 4.3 K/uL (4.8-10.8)
[2017-12-30] MEDS ORDERED: Iohexol 240 (50 ml) ONE (14:41)
[2017-12-30 14:48] LABS: PROTHROMBIN TIME 10.9 Seconds (9.8-13.1)
[2017-12-30 14:51] LABS: PARTIAL THROMBOPLASTIN TIME 27.6 Seconds (25.6-37.1)
[2017-12-30 15:03] LABS: ALB/GLOB RATIO 0.9 (1.0-2.1); ALBUMIN 3.9 g/dL (3.5-5.0); ALT/SGPT 100 U/L (9-52); AST/SGOT 107 U/L (14-36); BLOOD UREA NITROGEN 10 mg/dl (7-17); CALCIUM 9.5 mg/dL (8.4-10.2); GFR NON-AFRICAN AMERICAN > 60; LIPASE 62 U/L (23-300)
--- NOTE | 2017-12-30 15:47 | CARD ---
APPROVED REPORT Date of service: 12/30/2017 EKG Measurement Heart [id number] <Conclusion> Sinus bradycardia Otherwise normal ECG
[2017-12-30] MEDS ORDERED: Sodium Chloride 0.9% 50 ML IV ONE (16:52)
[2017-12-30] MEDS ORDERED: Iohexol 300 100 ML IJ ONE (16:52)
[2017-12-30 18:39] VITALS: BP 110/72; PULSE 70
--- NOTE | 2017-12-31 12:11 | CT ---
Date of service: 12/30/2017 PROCEDURE: CT Abdomen and Pelvis with contrast HISTORY: abd pain COMPARISON: None. TECHNIQUE: Contrast dose: 95 mL Omnipaque 300 Radiation dose: Total exam DLP = 743.41 mGy-cm. This CT exam was performed using one or more of the following dose reduction techniques: Automated exposure control, adjustment of the mA and/or kV according to patient size, and/or use of iterative reconstruction technique. FINDINGS: LOWER THORAX: Unremarkable. LIVER: Unremarkable. No gross lesion or ductal dilatation. GALLBLADDER AND BILE DUCTS: Unremarkable. PANCREAS: Unremarkable. No gross lesion or ductal dilatation. SPLEEN: Unremarkable. ADRENALS: Unremarkable. No mass. KIDNEYS AND URETERS: Unremarkable. No hydronephrosis. No solid mass. VASCULATURE: Unremarkable. No aortic aneurysm. BOWEL: Unremarkable. No obstruction. No gross mural thickening. APPENDIX: Normal appendix. PERITONEUM: Unremarkable. No free fluid. No free air. LYMPH NODES: Unremarkable. No enlarged lymph nodes. BLADDER: Unremarkable. REPRODUCTIVE: Unremarkable uterus. Peripherally enhancing 2.2 cm right ovarian cyst. Unremarkable left ovary. BONES: No acute fracture. OTHER FINDINGS: None. IMPRESSION: 2.2 cm peripherally enhancing right ovarian cyst common nonspecific. No additional abnormality identified. The preliminary findings for this examination were reported by [facility] at 7:27 p.m. on 12/30/2017. There is concurrence of this report with the preliminary findings.
== END 2017-12-30 18:10 | disposition left against medical advice (07) ==
LOC: H.ER 13:16
DX: R10.9 Unspecified abdominal pain (principal); R94.5 Abnormal results of liver function studies
CPT/HCPCS: 74177; 80053; 81025; 83690; 84484; 85025; 85610; 85730; 93005; 99284; J7030; Q9966; Q9967

== ENCOUNTER 2018-08-12 08:55 | Emergency (ER) | payer OTHER ==
[2018-08-12 09:33] VITALS: BMI 30.5
[2018-08-12 09:34] VITALS: RESP 16
--- NOTE | 2018-08-12 10:31 | ED PDOC ---
HPI: Head Injury Time Seen by Provider: 08/12/18 10:05 Chief Complaint (Nursing): Trauma Chief Complaint (Provider): i hit my head History Per: Patient History/Exam Limitations: no limitations Injury Occurred (Timing): Hours Ago: (12 approx) Onset/Duration Of Symptoms: Hrs (12), Sudden Onset Patient States: Other (hit head on object) Additional Complaint(s): 47yo female states was cleaning fridge last night, got up suddenly striking top of head on freezer handle, felt dizzy w nausea and headache since, although states did sleep normally. No syncope, seizures, focal weakness or neck pain/. Past Medical History Reviewed: Historical Data, Nursing Documentation, Vital Signs Vital Signs: Last Vital Signs Temp 97.4 F L 08/12/18 09:33 Pulse 69 08/12/18 09:33 Resp 16 08/12/18 09:33 BP 122/81 08/12/18 09:33 Pulse Ox 97 08/12/18 09:33 Primary Care Provider: Kurt Auguste - Medical History PMH: Anxiety, Arthritis, Depression, Gastritis, Hepatitis (recently diagnosed) Denies: Chronic Kidney Disease - Family History Family History: States: Unknown Family Hx - Immunization History Hx Tetanus Toxoid Vaccination: Yes (3 years ago) - Home Medications Home Medications: Ambulatory Orders Medication Instructions Recorded Clonazepam [Klonopin] 2 mg PO QID PRN 12/11/15 Pantoprazole [Protonix EC Tab] 40 mg PO DAILY 12/11/15 Cephalexin [Keflex] 500 mg PO TID 04/25/16 Ibuprofen [Motrin Tab] 1 mg PO Q12 PRN 04/25/16 Cyclobenzaprine [Flexeril] 10 mg PO TID #10 tab 09/08/16 Fluticasone Nasal [Flonase] 1 spr NS DAILY #1 spr 09/08/16 Sulfamethoxazole/Trimethoprim 1 tab PO BID #20 tab 09/08/16 [Bactrim DS Tab] Naproxen [Naprosyn Tab] 375 mg PO Q8 PRN #21 tab 09/15/16 Naproxen [Naprosyn] 500 mg PO BID PRN #15 tablet 10/28/16 Diclofenac Sodium [Voltaren] 1 appl TP BID PRN #1 12/17/16 Cephalexin [Keflex] 500 mg PO TID 01/02/17 oxyCODONE/Acetaminophen [Percocet 1 ea PO Q4 PRN 01/02/17 5/325 mg Tab] oxyCODONE/Acetaminophen [Percocet 1 tab PO Q6H PRN #5 tab 02/25/17 5/325 mg Tab] Naproxen [Naprosyn] 500 mg PO BID PRN #15 tablet 04/20/17 Lidocaine 5% [Lidoderm] 1 patch TD DAILY #10 patch 04/22/17 Phenazopyridine HCl [Pyridium] 200 mg PO TID #12 tablet 07/20/17 Sulfamethoxazole/Trimethoprim 1 tab PO BID #20 tab 07/20/17 [Bactrim DS 800 mg-160 mg] Ciprofloxacin HCl [Cipro] 500 mg PO BID #28 tablet 09/28/17 Fluconazole [Diflucan] 100 mg PO DAILY #1 tab 09/28/17 Phenazopyridine HCl [Pyridium] 200 mg PO TID PRN #9 tablet 09/28/17 Ibuprofen [Motrin Tab] 600 mg PO Q6 PRN #15 tab 08/12/18 - Allergies Allergies/Adverse Reactions: Allergies Allergy/AdvReac Type Severity Reaction Status Date / Time tramadol AdvReac hives Verified 08/12/18 10:05 Review of Systems ROS Statement: Except As Marked, All Systems Reviewed And Found Negative Constitutional: Negative for: Fever Cardiovascular: Negative for: Chest Pain Respiratory: Negative for: Cough, Shortness of Breath Gastrointestinal: Positive for: Nausea. Negative for: Vomiting, Abdominal Pain Genitourinary Female: Negative for: Dysuria Musculoskeletal: Negative for: Neck Pain, Back Pain Skin: Negative for: Rash, Lesions Neurological: Positive for: Headache, Dizziness. Negative for: Weakness, Numbness, Confusion Psych: Negative for: Anxiety Physical Exam - Reviewed Nursing Documentation Reviewed: Yes Vital Signs Reviewed: Yes - Physical Exam Appears: Positive for: Well, Non-toxic, No Acute Distress Head Exam: Positive for: ATRAUMATIC, NORMAL INSPECTION, NORMOCEPHALIC Skin: Positive for: Normal Color, Warm, DRY Eye Exam: Positive for: EOMI, Normal appearance, PERRL ENT: Positive for: Normal ENT Inspection, TM Is/Are (no hemotympanum) Neck: Positive for: Normal, Painless ROM Cardiovascular/Chest: Negative for: Tachycardia Respiratory: Negative for: Respiratory Distress Extremity: Positive for: Normal ROM Neurological/Psych: Positive for: Awake, Alert, Normal Tone, Oriented. Negative for: Motor/Sensory Deficits, Facial Droop - ECG O2 Sat by Pulse Oximetry: 97 Medical Decision Making Medical Decision Making: ct brain performed and results d/w patient concussion instructions discussed and provided DC from ED Disposition - Clinical Impression Clinical Impression: Head injury, Concussion - Patient ED Disposition Is Patient to be Admitted: No Counseled Patient/Family Regarding: Studies Performed, Diagnosis, Need For Followup, Rx Given - Disposition Referrals: Tino Parker MD [Medical Doctor] - Disposition: Routine/Home Disposition Time: 12:30 Condition: STABLE Additional Instructions: Return to ER for any new or worsening symptoms;. Prescriptions: Ibuprofen [Motrin Tab] 600 mg PO Q6 PRN #15 tab PRN Reason: Pain, Moderate (4-7) Instructions: Concussion in Adults, Postconcussion Syndrome, Minor Head Injury Forms: [facility] ([place])
--- NOTE | 2018-08-12 11:22 | CT ---
Date of service: 08/12/2018 PROCEDURE: CT HEAD WITHOUT CONTRAST. HISTORY: head injury COMPARISON: Comparison is made with 04/02/2016 TECHNIQUE: Axial computed tomography images were obtained through the head/brain without intravenous contrast. Radiation dose: Total exam DLP = 766.19 mGy-cm. This CT exam was performed using one or more of the following dose reduction techniques: Automated exposure control, adjustment of the mA and/or kV according to patient size, and/or use of iterative reconstruction technique. FINDINGS: HEMORRHAGE: No intracranial hemorrhage. BRAIN: No mass effect or edema. Mild volume loss is noted. VENTRICLES: Unremarkable. No hydrocephalus. CALVARIUM: Unremarkable. PARANASAL SINUSES: Unremarkable as visualized. No significant inflammatory changes. MASTOID AIR CELLS: Unremarkable as visualized. No inflammatory changes. OTHER FINDINGS: None. IMPRESSION: No evidence of acute intracranial hemorrhage mass effect or midline shift. Mild volume loss
[2018-08-12 13:58] VITALS: BP 117/72; PULSE 71; TEMP 97.9
[2018-08-13 17:36] VITALS: O2SAT 97
== END 2018-08-12 13:55 | disposition home or self-care (01) ==
LOC: H.ER 08:55
DX: S06.0X0A Concussion without loss of consciousness, initial encounter (principal); W22.8XXA Striking against or struck by other objects, initial encounter; Y92.89 Other specified places as the place of occurrence of the external cause